=== PATIENT | female | born 1980 | race Two or more races ===

== ENCOUNTER 2021-12-27 18:53 | Inpatient (IN) | payer OTHER, SELFPAY ==
[2021-12-27 19:12] VITALS: BP 112/73; PULSE 100; RESP 16; TEMP 36.1; O2SAT 97; BMI 37.1
--- NOTE | 2021-12-27 19:26 | ED.OVERDOSE ---
HPI - Overdose General Chief Complaint: Overdose Stated Complaint: crisis Time Seen by Provider: 12/27/21 19:25 Source: family Mode of arrival: ambulatory History of Present Illness HPI Narrative: Patient very poor historian brought by her partner for for increased lethargic following sleep apparently patient took 3 days of her psych medication exactly not sure what medications 3 days ago since then patient has been sleeping unable to function patient does have history of depression and SI in the past and has done similar overdosing in the past just to sleep per patient partner patient denies any suicidal ideation at this time. On arrival patient has been sleeping since then able to wake up on painful stimuli. Her medication includes Cogentin, clonidine, Prozac, Haldol, Lamictal, Ativan, metformin, Zyprexa and Januvia Related Data Home Medications Medication Instructions Recorded Confirmed Trulicity 12/27/21 12/27/21 benztropine 1 mg tablet 1 mg PO BID 12/27/21 12/27/21 clonidine HCl 0.1 mg tablet 0.1 mg PO BID 12/27/21 12/27/21 fluoxetine 20 mg capsule (Prozac) 20 mg PO BID 12/27/21 12/27/21 haloperidol 10 mg tablet 10 mg PO DAILY 12/27/21 12/27/21 lamotrigine 100 mg tablet 100 mg PO DAILY 12/27/21 12/27/21 lorazepam 1 mg tablet (Ativan) 1 mg PO BID PRN 12/27/21 12/27/21 metformin 1,000 mg tablet,extended 1,000 mg PO DAILY 12/27/21 12/27/21 release 24hr olanzapine 10 mg tablet (Zyprexa) 10 mg PO DAILY 12/27/21 12/27/21 omeprazole 20 mg capsule,delayed 20 mg PO DAILY 12/27/21 12/27/21 release pregabalin 225 mg capsule 225 mg PO DAILY 12/27/21 12/27/21 sitagliptin 100 mg tablet (Januvia) 100 mg PO DAILY 12/27/21 12/27/21 zolpidem 10 mg tablet 10 mg PO BEDTIME 12/27/21 12/27/21 Allergies Allergy/AdvReac Type Severity Reaction Status Date / Time quetiapine [From Seroquel] Allergy Severe Difficulty Verified 12/27/21 19:41 Breathing Review of Systems Review of Systems: Yes Unobtainable due to mental status [facility] Social History Social History Alcohol intake: current Alcohol intake frequency: 3 or more drinks per day Alcohol type: wine Patient Tobacco Use Status: Current everyday Tobacco user Smoked in Last 30 Days: Yes Physical Exam Vital Signs: Vital Signs: Last Vital Signs Temp 97.9 F 12/27/21 22:13 Pulse 76 12/27/21 22:13 Resp 16 12/27/21 22:13 BP 120/81 12/27/21 22:13 Pulse Ox 100 12/27/21 22:13 BMI result Body Mass Index 37.1 Appearance: Lethargic in nose significant distress breathing of her own saturating 100% on room air Eyes: Pupil dilated 5 mm b/l reacting to the light HEENT: Atraumatic normocephalic Pharynx normal. Oral Mucosa moist Neck: Normal inspection. Neck supple. CVS: Normal heart rate and rhythm. Pulses normal. Respiratory: No respiratory distress. Equal air entry bilateral, no wheezing/rales/rhonchi Abdomen: Soft and nontender. Bowel sounds are present, no mass palpable, no CVA tenderness Skin: Skin warm and dry. Normal skin color. Normal skin turgor. Extremities: No lower extremity edema. No calf tenderness Neuro: Lethargic arousable on painful stimuli moving all 4 extremities No motor deficit. cranial nerves II-XII intact MDM - Overdose MDM Narrative Medical decision making narrative: Patient with overdose exactly not sure what medication she took but she takes Zyprexa Haldol Ativan Lamictal Prozac clonidine Cogentin which she took according to partner 3 days ago but still sleepy. Patient partner does not stay all the time with her as she goes to work patient very poor historian not tearing exactly whether she took any extra medication and not. Case discussed with poison control advised watch, observe her in the ER did she fully awake Differential Diagnosis Differential diagnosis: Likely drug overdose Lab Data Attestation: I reviewed the patient's lab results. Result diagrams: 12/27/21 20:14 12/27/21 20:14 Labs: Lab Results 12/27/21 12/27/21 12/27/21 Range/Units 20:14 20:14 20:14 WBC 9.4 (4.8-10.8) X10*3/uL RBC 4.19 L (4.20-5.50) X10*6/uL Hgb 10.6 L (12.0-16.0) g/dl Hct 33.0 L (37.0-47.0) % MCV 78.8 L (80.0-98.0) fL MCH 25.3 L (27.0-33.0) pg MCHC 32.1 (31.0-35.0) g/dl RDW 16.3 H (11.0-16.0) % Plt Count 317 (160-400) X10*3/uL MPV 11.5 (9.4-12.3) fL Immature Gran % (Auto) 0.2 (0.0-0.4) % Neut % (Auto) 60.1 (45-73) % Lymph % (Auto) 31.4 (20-40) % [place] % (Auto) 6.0 (2-11) % Eos % (Auto) 1.4 (0-4) % Baso % (Auto) 0.9 (0-2) % Lymph # (Auto) 3.0 (1.2-4.9) X10*3/uL [place] # (Auto) 0.6 (0.1-1.2) X10*3/uL Eos # (Auto) 0.1 (0.0-0.4) X10*3/uL Baso # (Auto) 0.1 (0.0-0.2) X10*3/uL Abs Immat Gran (auto) 0.02 (0.00-0.03) X10*3/uL Absolute Neuts (auto) 5.7 (2.0-8.3) x10*3/uL Absolute Nucleated RBC 0.000 (0.0-0.012) X10*3/uL Nucleated RBC % (auto) 0.0 (0.0-0.2) /100WBC Sodium 136 (135-145) mmol/L Potassium 3.7 (3.3-5.1) mmol/L Chloride 105 (96-108) mmol/L Carbon Dioxide 22 (22-29) mmol/L Anion Gap 13 (12-20) BUN 8 L (9-16) mg/dL Creatinine 0.88 (0.5-1.4) mg/dL Estim Creat Clear Calc 103.7 Estimated GFR > 60 Random Glucose 250 H (60-115) mg/dL Calcium 8.8 (8.4-10.2) mg/dL Total Bilirubin 0.3 (0.0-1.0) mg/dL AST 17 (5-31) U/L ALT 21 (0-31) U/L Alkaline Phosphatase 89 (39-117) U/L Total Protein 7.0 (6.5-8.0) g/dL Albumin 3.9 (3.5-5.0) g/dL Urine Color Urine Appearance Urine pH (5.0-8.0) Ur Specific [place] (1.005-1.025) Urine Protein (NEG-TRACE) MG/DL Urine Glucose (UA) (NEG) MG/DL Urine Ketones (NEG) MG/DL Urine Blood (NEG) Urine Nitrite (NEG) Ur Leukocyte Esterase (NEG) Urine RBC (0) /HPF Urine WBC (0-4) /HPF Ur Squamous Epith Cells /LPF Urine Bacteria /LPF Urine Mucus /LPF Salicylates < 5.0 L (15-30) mg/dL Urine Opiates Screen (Not Detect) Urine Fentanyl Screen (Not Detect) Acetaminophen < 1 (<30) mcg/mL Ur Barbiturates Screen (Not Detect) Ur Phencyclidine Scrn (Not Detect) Ur Amphetamines Screen (Not Detect) U Benzodiazepines Scrn (Not Detect) Urine Cocaine Screen (Not Detect) U Marijuana (THC) Screen (Not Detect) Ethyl Alcohol mg/dL COVID-19 ([facility]) Negative (Negative) COVID-19 Clin Com See Note 12/27/21 12/27/21 12/27/21 Range/Units 20:14 22:55 22:55 WBC (4.8-10.8) X10*3/uL RBC (4.20-5.50) X10*6/uL Hgb (12.0-16.0) g/dl Hct (37.0-47.0) % MCV (80.0-98.0) fL MCH (27.0-33.0) pg MCHC (31.0-35.0) g/dl RDW (11.0-16.0) % Plt Count (160-400) X10*3/uL MPV (9.4-12.3) fL Immature Gran % (Auto) (0.0-0.4) % Neut % (Auto) (45-73) % Lymph % (Auto) (20-40) % [place] % (Auto) (2-11) % Eos % (Auto) (0-4) % Baso % (Auto) (0-2) % Lymph # (Auto) (1.2-4.9) X10*3/uL [place] # (Auto) (0.1-1.2) X10*3/uL Eos # (Auto) (0.0-0.4) X10*3/uL Baso # (Auto) (0.0-0.2) X10*3/uL Abs Immat Gran (auto) (0.00-0.03) X10*3/uL Absolute Neuts (auto) (2.0-8.3) x10*3/uL Absolute Nucleated RBC (0.0-0.012) X10*3/uL Nucleated RBC % (auto) (0.0-0.2) /100WBC Sodium (135-145) mmol/L Potassium (3.3-5.1) mmol/L Chloride (96-108) mmol/L Carbon Dioxide (22-29) mmol/L Anion Gap (12-20) BUN (9-16) mg/dL Creatinine (0.5-1.4) mg/dL Estim Creat Clear Calc Estimated GFR Random Glucose (60-115) mg/dL Calcium (8.4-10.2) mg/dL Total Bilirubin (0.0-1.0) mg/dL AST (5-31) U/L ALT (0-31) U/L Alkaline Phosphatase (39-117) U/L Total Protein (6.5-8.0) g/dL Albumin (3.5-5.0) g/dL Urine Color YELLOW Urine Appearance HAZY Urine pH 6.0 (5.0-8.0) Ur Specific [place] 1.015 (1.005-1.025) Urine Protein NEG (NEG-TRACE) MG/DL Urine Glucose (UA) NEG (NEG) MG/DL Urine Ketones NEG (NEG) MG/DL Urine Blood NEG (NEG) Urine Nitrite NEG (NEG) Ur Leukocyte Esterase TRACE H (NEG) Urine RBC 1-4 (0) /HPF Urine WBC 1-4 (0-4) /HPF Ur Squamous Epith Cells 1+ /LPF Urine Bacteria 4+ /LPF Urine Mucus 2+ /LPF Salicylates (15-30) mg/dL Urine Opiates Screen Not Detected (Not Detect) Urine Fentanyl Screen POSITIVE H (Not Detect) Acetaminophen (<30) mcg/mL Ur Barbiturates Screen Not Detected (Not Detect) Ur Phencyclidine Scrn Not Detected (Not Detect) Ur Amphetamines Screen Not Detected (Not Detect) U Benzodiazepines Scrn Not Detected (Not Detect) Urine Cocaine Screen Not Detected (Not Detect) U Marijuana (THC) Screen POSITIVE H (Not Detect) Ethyl Alcohol < 10 mg/dL COVID-19 ([facility]) (Negative) COVID-19 Clin Com ECG Data Attestation: I personally reviewed and interpreted this ECG as follows: Interpretation: Normal sinus rhythm heart rate 89 beats per minute normal interval normal axis no acute ST-T changes normal intervals Discharge Plan Discharge Clinical Impression: Drug overdose Patient Disposition: Still a Patient Prescriptions: No Action clonidine HCl 0.1 mg Tablet 0.1 mg PO BID 0RF olanzapine [Zyprexa] 10 mg Tablet 10 mg PO DAILY 0RF haloperidol [Haldol] 10 mg Tablet 10 mg PO DAILY 0RF benztropine [Cogentin] 1 mg Tablet 1 mg PO BID 0RF omeprazole 20 mg Capsule,Delayed Release(Dr/Ec) 20 mg PO DAILY 0RF lorazepam [Ativan] 1 mg Tablet 1 mg PO BID PRN (Reason: Anxiety) 0RF zolpidem 10 mg Tablet 10 mg PO BEDTIME 0RF fluoxetine [Prozac] 20 mg Capsule 20 mg PO BID 0RF Rx Instructions: administer in the morning and at noon/midday lamotrigine 100 mg Tablet 100 mg PO DAILY 0RF metformin 1,000 mg Tablet Extended Release 24hr 1,000 mg PO DAILY 0RF pregabalin 225 mg Capsule 225 mg PO DAILY 0RF Januvia 100 mg Tablet 100 mg PO DAILY 0RF Trulicity 0RF
[2021-12-27 19:34] VITALS: BP 119/76; PULSE 93; RESP 14; TEMP 37.2; O2SAT 97
--- NOTE | 2021-12-27 19:34 | ECG_ITS ---
Test Reason : OVERDOSED Blood Pressure : / mmHG Vent. Rate : 089 BPM Atrial Rate : 089 BPM P-R Int : 156 ms QRS Dur : 082 ms QT Int : 380 ms P-R-T Axes : 029 026 025 degrees QTc Int : 462 ms Normal sinus rhythm Normal ECG No previous ECGs available Referred By: Ayo Carmona Electronically Signed By:Cholo Hameed
[2021-12-27 19:59] VITALS: BP 110/81; PULSE 89; RESP 16; TEMP 36.4; O2SAT 97
[2021-12-27 20:20] LABS: MANUAL DIFF FLAG NO
[2021-12-27 20:27] LABS: Basophils Absolute Auto 0.1 X10*3/uL (0.0-0.2); Basophils Percent Auto 0.9 % (0-2); Eosinophils Absolute Auto 0.1 X10*3/uL (0.0-0.4); Eosinophils Percent Auto 1.4 % (0-4); Hemoglobin 10.6 g/dl (12.0-16.0); Imm Gran Abs Auto 0.02 X10*3/uL (0.00-0.03); Imm Gran Pct Auto 0.2 % (0.0-0.4); Lymphocytes Percent Auto 31.4 % (20-40); Mean Corpuscular HGB Conc 32.1 g/dl (31.0-35.0); Mean Corpuscular Hemoglobin 25.3 pg (27.0-33.0); Mean Corpuscular Volume 78.8 fL (80.0-98.0); Mean Platelet Volume 11.5 fL (9.4-12.3); Monocytes Absolute Auto 0.6 X10*3/uL (0.1-1.2); Neutrophils Absolute Auto 5.7 x10*3/uL (2.0-8.3); Neutrophils Percent Auto 60.1 % (45-73); Platelet Count 317 X10*3/uL (160-400); Red Blood Count 4.19 X10*6/uL (4.20-5.50); Red Cell Distribution Width 16.3 % (11.0-16.0); White Blood Count 9.4 X10*3/uL (4.8-10.8)
[2021-12-27 20:37] LABS: COVID-19 Test Negative (Negative); Ethanol < 10 mg/dL
[2021-12-27 20:39] LABS: Acetaminophen LAB < 1 mcg/mL (<30); Alanine Aminotransferase 21 U/L (0-31); Albumin Level 3.9 g/dL (3.5-5.0); Alkaline Phosphatase 89 U/L (39-117); Anion Gap 13 (12-20); Aspartate Amino Transferase 17 U/L (5-31); Bilirubin Total 0.3 mg/dL (0.0-1.0); Blood Urea Nitrogen 8 mg/dL (9-16); Calcium 8.8 mg/dL (8.4-10.2); Carbon Dioxide 22 mmol/L (22-29); Chloride 105 mmol/L (96-108); Creatinine Clr Calc Pharmacy 103.7; Estimated Glomerular Filt Rate > 60; Glucose Random 250 mg/dL (60-115); Potassium 3.7 mmol/L (3.3-5.1); Salicylate < 5.0 mg/dL (15-30); Sodium 136 mmol/L (135-145)
--- NOTE | 2021-12-27 20:50 | PC.NURSE ---
Per request ER MD Villeda I phoned [facility] pharmacy to obtain a med list for this pt as the pt's nor the pt were able to articulate an accurate med list. The meds that were dictated to me by Su have been entered into the pts med rec. Christiana MAGUIRE aware. no further action requested regarding med list.
[2021-12-27 22:13] VITALS: BP 120/81; PULSE 76; RESP 16; TEMP 36.6; O2SAT 100
[2021-12-27 23:01] LABS: Appearance Urine HAZY; Color Urine YELLOW; Glucose Urine UA NEG (NEG); Leukocyte Esterase Urine TRACE (NEG); Nitrite Urine NEG (NEG); Specific Gravity - Urine 1.015 (1.005-1.025); Urine Blood NEG (NEG); Urine Ketones NEG (NEG); Urine Protein NEG (NEG-TRACE)
[2021-12-27 23:08] LABS: Bacteria Urine 4+ /LPF; Mucus Urine 2+ /LPF; Squamous Epithelial Cell Urine 1+ /LPF
[2021-12-27 23:18] LABS: Amphetamine Screen Urine Not Detected (Not Detect); Barbiturates, Urine Not Detected (Not Detect); Benzodiazepines Screen Urine Not Detected (Not Detect); Cannabinoid Screen Urine POSITIVE (Not Detect); Cocaine Screen Urine Not Detected (Not Detect); Fentanyl, urine POSITIVE (Not Detect); Opiate Screen Urine Not Detected (Not Detect); Phencyclidine Screen Urine Not Detected (Not Detect)
--- NOTE | 2021-12-27 23:18 | PC.NURSE ---
At approximately 2200 I spoke with poison control regarding this patient at the request of MD Villeda. Their instructions were to ? continue monitoring the patient until they are awake and alert and oriented x 3. Christiana MAGUIRE aware.
[2021-12-28] VITALS (8 sets, daily range): BP systolic 121–135; BP diastolic 74–90; PULSE 80–108; RESP 15–18; TEMP 36.4–36.6; O2SAT 98–100
--- NOTE | 2021-12-28 07:27 | MHC.CARE ---
Pt was assessed in the community and a inpatient bedsearch
--- NOTE | 2021-12-28 10:03 | PHA.MEDREC ---
Pharmacy Consult ? Medication Reconciliation Pharmacy has completed the medication reconciliation.
[2021-12-28] MEDS: FLUoxetine HCl 20 MG CAPSULE PO ×2 (10:10→20:14)
[2021-12-28] MEDS: Benztropine Mesylate 1 MG TABLET PO ×2 (10:10→20:13)
[2021-12-28] MEDS: cloNIDine HCL 0.1 MG TABLET PO ×2 (10:10→20:14)
[2021-12-28] MEDS: HaloperidoL 5 MG TABLET 10 MG PO (10:11)
[2021-12-28] MEDS: lamoTRIgine 100 MG TABLET PO (11:42)
[2021-12-28] MEDS: Pregabalin 75 MG CAPSULE 225 MG PO (11:43)
[2021-12-28] MEDS: OLANZapine 10 MG TABLET PO (11:43)
[2021-12-28] MEDS: metFORMIN HCl ER 500 MG TAB.ER.24H 1000 MG PO (11:43)
[2021-12-28] MEDS: SITagliptin Phosphate 100 MG TABLET PO (11:43)
[2021-12-28] MEDS: Omeprazole 20 MG CAPSULE.DR PO (11:44)
--- NOTE | 2021-12-28 13:35 | PM.PSYCN ---
History of Present Illness Date of Service: 12/28/21 Chief Complaint: crisis Reason for Consult: assess, med management Discussed with referring provider: No Sources of Information: patient interviewed, chart reviewed and crisis/core team assessment reviewed HPI Narrative: Patient is a 41-year-old female with history of mood lability, chronic SI and past suicide attempts who presented to the ED with her partner after having made a suicidal comment to her partner, following an intentional overdose of her medications about 3 days prior in a suicide attempt. Patient is casual about episode and says that for years, she has daily suicidal thoughts. She acknowledges that a few days ago she took an overdose in a suicide attempt but she cannot articulate what triggered her. Patient explained that she got into an argument the other night with her partner about her safety and that when patient went upstairs to the bedroom, her partner got emotional is said something to the effect of you are going to attempt suicide to which patient replied maged. Although patient did attempt 3 days ago, she said that she was not suicidal at this moment and she only made the reply out of spite in the context of their argument; she reiterates she did not mean it and was not suicidal. Patient says she takes her medications regularly otherwise however she complains of auditory hallucinations that are not treated by her medications. She says she is working on this with her therapist. Fiberline Supervisor discussed need for inpatient admission, however patient said she has think she needs it and wants to continue working this out as an outpatient. Patient being assessed by [facility] crisis Past Psychiatric History: deferred to [facility] Crisis Medical Evaluation Reviewed: Yes ON LICENSE OF [facility] Medical History (Updated 12/29/21 @ 09:24 by Lavell Lisa MD) Adjustment disorder with mixed disturbance of emotions and conduct Family History: deferred to [facility] Crisis Social History: has partner with whom she's been with for past 8 years, for 2 Substance History: denies; drinks 2-3 alcoholic drinks a day Trauma History: deferred to [facility] Crisis Diagnostics Vital Signs (24Hr): Vital Signs - 24 hr 12/27/21 19:12 12/27/21 19:34 12/27/21 19:59 Temperature 97 F 98.9 F 97.6 F Pulse Rate 100 93 89 Respiratory Rate 16 14 16 Blood Pressure 112/73 119/76 110/81 Pulse Oximetry 97 97 97 12/27/21 22:13 12/28/21 01:59 12/28/21 02:01 Temperature 97.9 F Pulse Rate 76 87 80 Respiratory Rate 16 18 18 Blood Pressure 120/81 135/90 H Pulse Oximetry 100 98 98 12/28/21 05:56 12/28/21 09:03 12/28/21 10:37 Temperature 97.8 F 97.6 F Pulse Rate 104 H 101 H 106 H Respiratory Rate 16 16 16 Blood Pressure 121/76 135/88 130/85 Pulse Oximetry 98 98 100 12/28/21 12:04 Temperature Pulse Rate 96 Respiratory Rate 16 Blood Pressure 131/85 Pulse Oximetry 98 BMI result Body Mass Index 37.1 Labs Results: 12/27/21 20:14 12/27/21 20:14 Labs: Laboratory Results - last 48 hr 12/27/21 12/27/21 12/27/21 20:14 20:14 20:14 WBC 9.4 RBC 4.19 L Hgb 10.6 L Hct 33.0 L MCV 78.8 L MCH 25.3 L MCHC 32.1 RDW 16.3 H Plt Count 317 MPV 11.5 Immature Gran % (Auto) 0.2 Neut % (Auto) 60.1 Lymph % (Auto) 31.4 [place] % (Auto) 6.0 Eos % (Auto) 1.4 Baso % (Auto) 0.9 Lymph # (Auto) 3.0 [place] # (Auto) 0.6 Eos # (Auto) 0.1 Baso # (Auto) 0.1 Abs Immat Gran (auto) 0.02 Absolute Neuts (auto) 5.7 Absolute Nucleated RBC 0.000 Nucleated RBC % (auto) 0.0 Sodium 136 Potassium 3.7 Chloride 105 Carbon Dioxide 22 Anion Gap 13 BUN 8 L Creatinine 0.88 Estim Creat Clear Calc 103.7 Estimated GFR > 60 Random Glucose 250 H Calcium 8.8 Total Bilirubin 0.3 AST 17 ALT 21 Alkaline Phosphatase 89 Total Protein 7.0 Albumin 3.9 Urine Color Urine Appearance Urine pH Ur Specific [place] Urine Protein Urine Glucose (UA) Urine Ketones Urine Blood Urine Nitrite Ur Leukocyte Esterase Urine RBC Urine WBC Ur Squamous Epith Cells Urine Bacteria Urine Mucus Salicylates < 5.0 L Urine Opiates Screen Urine Fentanyl Screen Acetaminophen < 1 Ur Barbiturates Screen Ur Phencyclidine Scrn Ur Amphetamines Screen U Benzodiazepines Scrn Urine Cocaine Screen U Marijuana (THC) Screen Ethyl Alcohol COVID-19 ([facility]) Negative COVID-19 Clin Com See Note 12/27/21 12/27/21 12/27/21 20:14 22:55 22:55 WBC RBC Hgb Hct MCV MCH MCHC RDW Plt Count MPV Immature Gran % (Auto) Neut % (Auto) Lymph % (Auto) [place] % (Auto) Eos % (Auto) Baso % (Auto) Lymph # (Auto) [place] # (Auto) Eos # (Auto) Baso # (Auto) Abs Immat Gran (auto) Absolute Neuts (auto) Absolute Nucleated RBC Nucleated RBC % (auto) Sodium Potassium Chloride Carbon Dioxide Anion Gap BUN Creatinine Estim Creat Clear Calc Estimated GFR Random Glucose Calcium Total Bilirubin AST ALT Alkaline Phosphatase Total Protein Albumin Urine Color YELLOW Urine Appearance HAZY Urine pH 6.0 Ur Specific [place] 1.015 Urine Protein NEG Urine Glucose (UA) NEG Urine Ketones NEG Urine Blood NEG Urine Nitrite NEG Ur Leukocyte Esterase TRACE H Urine RBC 1-4 Urine WBC 1-4 Ur Squamous Epith Cells 1+ Urine Bacteria 4+ Urine Mucus 2+ Salicylates Urine Opiates Screen Not Detected Urine Fentanyl Screen POSITIVE H Acetaminophen Ur Barbiturates Screen Not Detected Ur Phencyclidine Scrn Not Detected Ur Amphetamines Screen Not Detected U Benzodiazepines Scrn Not Detected Urine Cocaine Screen Not Detected U Marijuana (THC) Screen POSITIVE H Ethyl Alcohol < 10 COVID-19 ([facility]) COVID-19 Clin Com Mental Status Exam Mental Status Exam Narrative: Pt is alert and oriented; behavior is cooperative, friendly and calm; patient is not in distress; dressed in casual attire, without dentures in, with unkempt hair but adequate hygiene; mood is described as ok and affect congruent, calm; eye contact appropriate; Speech is normal rate, volume and prosody and not pressured; no psychomotor agitation/retardation present; thought process is organized and goal directed; Thought content is on tx; otherwise pertinent to relevant topics and without any delusional content, paranoid ideations or grandiosity; denies any SI/HI. Endorses chronic AH; Patients insight and judgment appears impaired as she's minimizing her attempt and need for help stabilizing. Medications Medications Current Medications Benztropine Mesylate (Benztropine Mesylate 1 Mg Tablet) 1 mg PO BID [facility] Last Admin: 12/28/21 10:10 Dose: 1 mg Documented by: Clonidine HCl (Clonidine Hcl 0.1 Mg Tablet) 0.1 mg PO BID [facility]; Protocol Last Admin: 12/28/21 10:10 Dose: 0.1 mg Documented by: Fluoxetine HCl (Fluoxetine Hcl 20 Mg Capsule) 20 mg PO BID [facility] Last Admin: 12/28/21 10:10 Dose: 20 mg Documented by: Haloperidol (Haloperidol 5 Mg Tablet) 10 mg PO DAILY [facility] Last Admin: 12/28/21 10:11 Dose: 10 mg Documented by: Lamotrigine (Lamotrigine 100 Mg Tablet) 100 mg PO DAILY [facility] Last Admin: 12/28/21 11:42 Dose: 100 mg Documented by: Lorazepam (Lorazepam 1 Mg Tablet) 1 mg PO BID PRN PRN Reason: Anxiety Metformin HCl (Metformin Hcl Er 500 Mg Tab.Er.24h) 1,000 mg PO DAILY [facility] Last Admin: 12/28/21 11:43 Dose: 1,000 mg Documented by: Olanzapine (Olanzapine 10 Mg Tablet) 10 mg PO DAILY [facility] Last Admin: 12/28/21 11:43 Dose: 10 mg Documented by: Omeprazole (Omeprazole 20 Mg Capsule.Dr) 20 mg PO DAILY [facility] Last Admin: 12/28/21 11:44 Dose: 20 mg Documented by: Pregabalin (Pregabalin 75 Mg Capsule) 225 mg PO DAILY [facility] Last Admin: 12/28/21 11:43 Dose: 225 mg Documented by: Sitagliptin Phosphate (Sitagliptin Phosphate 100 Mg Tablet) 100 mg PO DAILY [facility] Last Admin: 12/28/21 11:43 Dose: 100 mg Documented by: Zolpidem Tartrate (Zolpidem Tartrate 5 Mg Tablet) 10 mg PO BEDTIME [facility] Allergies Allergies Allergy/AdvReac Type Severity Reaction Status Date / Time quetiapine [From Seroquel] Allergy Severe Difficulty Verified 12/27/21 19:41 Breathing Assessment & Plan Assessment & Plan (1) Adjustment disorder with mixed disturbance of emotions and conduct: Status: Acute Code(s): F43.25 - Adjustment disorder with mixed disturbance of emotions and conduct Plan Patient is a 41-year-old female with history of mood lability, chronic SI and past suicide attempts who presented to the ED with her partner after having made a suicidal comment to her partner, following an intentional overdose of her medications about 3 days prior in a suicide attempt. Patient is minimizing recent attempt however as reported, she has a long history of SI and attempts which are chronic for her. Fiberline Supervisor recommends inpatient admission for help with medications to improve stability; however it may also be possible that by now, patient is no longer an imminent risk for harm to self or others. Fiberline Supervisor will defer this decision to [facility] crisis assessment who is seeking collateral and exploring patients history in more detail. PLAN: Continue with [facility] assessment Pt says she does not want to continue taking Haldol and will tell her current provider. I spent minutes with the patient and/or on the patient floor today, greater than?50% of which was spent counseling/coordinating care. Patient educated on: therapeutic strategies Informed Consent: further education needed
--- NOTE | 2021-12-28 14:37 | PC.NURSE ---
Pt seen this date for individual OT tx. Pt presents bright and alert however demonstrates difficulty maintaining task focused. Attempt made to educate pt with regard to mental health benefits of practicing gratitude . Pt is unable to fully engage in exercise secondary to limited attention span and high degree of distractibility at this time. Pt provided with educational material as well as simple journaling prompt Today I am Grateful That , I see...I hear...I smell...I taste...I feel. Pt provided with explanation for completing journaling prompt and pt reports I know exactly what I'm going to write . Consult with pts nurse regarding presentation of apparent confusion noted, pts nurse to access.
[2021-12-28] MEDS: LORazepam 1 MG TABLET PO (17:17)
[2021-12-28] MEDS: Zolpidem Tartrate 5 MG TABLET 10 MG PO (20:13)
[2021-12-28 20:21] LABS: Glucose, Whole Blood 316 mg/dL (60-115)
[2021-12-28 21:28] LABS: Glucose, Whole Blood 354 mg/dL (60-115)
[2021-12-28] MEDS: Insulin Glargine,Hum.rec.anlog 100 UNIT/ML 10 ML VIAL 45 UNIT SUBCUT (22:16)
[2021-12-28] MEDS: Insulin Lispro 100 UNIT/ML 3 ML VIAL 8 UNIT SUBCUT (22:16)
[2021-12-28 23:04] LABS: Glucose, Whole Blood 333 mg/dL (60-115)
[2021-12-29 04:55] VITALS: BP 138/87; PULSE 99; RESP 17; O2SAT 99
[2021-12-29 05:02] LABS: Glucose, Whole Blood 227 mg/dL (60-115)
--- NOTE | 2021-12-29 06:28 | PC.NURSE ---
Patient slept through the night, no distress observed/reported, POC was 354 at 2124, administered lispro 8 units at 2216, verified insulin order/administered scheduled Lantus 45 unit, POC 227 at 0458, medication compliant, behavior non concerning, disposition per [facility] is section 12 inpatient bed search, will continue to monitor.
[2021-12-29 07:06] LABS: Glucose, Whole Blood 371 mg/dL (60-115)
[2021-12-29] MEDS: Insulin Lispro 100 UNIT/ML 3 ML VIAL SUBCUT ×2 (07:19→20:49)
[2021-12-29] MEDS: lamoTRIgine 100 MG TABLET PO (07:27)
[2021-12-29] MEDS: cloNIDine HCL 0.1 MG TABLET PO ×2 (07:27→20:51)
[2021-12-29] MEDS: Pregabalin 75 MG CAPSULE 225 MG PO (07:27)
[2021-12-29] MEDS: metFORMIN HCl ER 500 MG TAB.ER.24H 1000 MG PO (07:27)
[2021-12-29] MEDS: OLANZapine 10 MG TABLET PO ×2 (07:27→20:51)
[2021-12-29] MEDS: HaloperidoL 5 MG TABLET 10 MG PO (07:28)
[2021-12-29] MEDS: Benztropine Mesylate 1 MG TABLET PO (07:28)
[2021-12-29] MEDS: Omeprazole 20 MG CAPSULE.DR PO (07:28)
[2021-12-29] MEDS: FLUoxetine HCl 20 MG CAPSULE PO ×2 (07:29→20:51)
--- NOTE | 2021-12-29 07:40 | PC.NURSE ---
PT ALERT CALM COOPERATIVE, TOLERATING PO, AMB WITH STEADY GAIT. NEEDS BEING MET WAITING ON INPATIENT PLACEMENT
[2021-12-29 08:09] VITALS: BP 145/93; PULSE 99; RESP 18; TEMP 36.4; O2SAT 99
[2021-12-29] MEDS: SITagliptin Phosphate 100 MG TABLET PO (09:05)
[2021-12-29 12:21] LABS: Glucose, Whole Blood 204 mg/dL (60-115)
[2021-12-29 16:48] LABS: COVID-19 Test Negative (Negative)
--- NOTE | 2021-12-29 18:22 | HO.PSYADMNOT ---
HPI Date of Service: 12/29/21 Chief Complaint: depression,SI Sources of Information: patient interviewed, chart reviewed and crisis/core team assessment reviewed HPI Subjective Notes: Sinclair Warning and Conditional Voluntary Healthcare Proxy: No Guardianship: No Medical Problems Affecting Mental Status: No Narrative: Cally is a 41 y.o. pt who carries a dx of schizoaffective disorder, depressive type. She [place] [facility] [place] brought in by her partner due to increased lethargy following an intentional overdose of her medications 3 days ago, says this was a suicide attempt. Pt has hx of overtaking her meds for sleep. Per psych consult, pt has a psych hx positive for mood lability, chronic SI and past suicide attempts. Pt unable to identify precipitating factors. Pt reports good med-adherence. Has hx of AH. I evaluated the pt this evening and upon interview she reports she is no longer on Haldol x one month, as it ?wasn?t working.? When asked about precipitating factors, pt says ?honestly I don?t know.? Says she ?just feels like im tired of all the things that happened.? Per pt, she has been having A/V hallucinations. Had a recent VH ?of this old short linda with a hat at the foot of my bed,? says ?one day he actually grabbed my feet,? denies that this was a dream. Pt has AH at baseline, ?I have voices in my head,? they call her inadequate, derogatory names, and tell her ?that I?m a bad mother, that I should be .? Pt reports onset of hallucinations x 1 yr ago. Her son left to go live with his father in [place] 1 yr ago, however pt asked for another year ?to recuperate.? Says her meds are working ?good,? minimizing suicide attempt, ?I just wanted to close my eyes and not think, I don?t know if that?s considered a suicide.? Pt requested to end the interview early, as she reported increased anxiety, ?Im starting to sweat, I want to cry.? She does not want med changes. Medical Evaluation Reviewed: Yes [facility] Medical History (Updated 12/31/21 @ 01:37 by Radha Knight NP) Adjustment disorder with mixed disturbance of emotions and conduct Social History: has partner with whom she's been with for past 8 years, for 2 Diagnostics Vital Signs (24Hr): Vital Signs - 24 hr 12/28/21 20:14 12/29/21 04:55 12/29/21 08:09 Temperature 97.5 F Pulse Rate 106 H 99 99 Respiratory Rate 15 17 18 Blood Pressure 131/74 138/87 145/93 H Pulse Oximetry 99 99 BMI result Body Mass Index 37.1 Labs Results: 12/27/21 20:14 12/27/21 20:14 Labs: Laboratory Results - last 48 hr 12/27/21 12/27/21 12/27/21 20:14 20:14 20:14 WBC 9.4 RBC 4.19 L Hgb 10.6 L Hct 33.0 L MCV 78.8 L MCH 25.3 L MCHC 32.1 RDW 16.3 H Plt Count 317 MPV 11.5 Immature Gran % (Auto) 0.2 Neut % (Auto) 60.1 Lymph % (Auto) 31.4 [place] % (Auto) 6.0 Eos % (Auto) 1.4 Baso % (Auto) 0.9 Lymph # (Auto) 3.0 [place] # (Auto) 0.6 Eos # (Auto) 0.1 Baso # (Auto) 0.1 Abs Immat Gran (auto) 0.02 Absolute Neuts (auto) 5.7 Absolute Nucleated RBC 0.000 Nucleated RBC % (auto) 0.0 Sodium 136 Potassium 3.7 Chloride 105 Carbon Dioxide 22 Anion Gap 13 BUN 8 L Creatinine 0.88 Estim Creat Clear Calc 103.7 Estimated GFR > 60 POC Glucose Random Glucose 250 H Calcium 8.8 Total Bilirubin 0.3 AST 17 ALT 21 Alkaline Phosphatase 89 Total Protein 7.0 Albumin 3.9 Urine Color Urine Appearance Urine pH Ur Specific [place] Urine Protein Urine Glucose (UA) Urine Ketones Urine Blood Urine Nitrite Ur Leukocyte Esterase Urine RBC Urine WBC Ur Squamous Epith Cells Urine Bacteria Urine Mucus Salicylates < 5.0 L Urine Opiates Screen Urine Fentanyl Screen Acetaminophen < 1 Ur Barbiturates Screen Ur Phencyclidine Scrn Ur Amphetamines Screen U Benzodiazepines Scrn Urine Cocaine Screen U Marijuana (THC) Screen Ethyl Alcohol COVID-19 ([facility]) Negative COVID-19 Clin Com See Note 12/27/21 12/27/21 12/27/21 20:14 22:55 22:55 WBC RBC Hgb Hct MCV MCH MCHC RDW Plt Count MPV Immature Gran % (Auto) Neut % (Auto) Lymph % (Auto) [place] % (Auto) Eos % (Auto) Baso % (Auto) Lymph # (Auto) [place] # (Auto) Eos # (Auto) Baso # (Auto) Abs Immat Gran (auto) Absolute Neuts (auto) Absolute Nucleated RBC Nucleated RBC % (auto) Sodium Potassium Chloride Carbon Dioxide Anion Gap BUN Creatinine Estim Creat Clear Calc Estimated GFR POC Glucose Random Glucose Calcium Total Bilirubin AST ALT Alkaline Phosphatase Total Protein Albumin Urine Color YELLOW Urine Appearance HAZY Urine pH 6.0 Ur Specific [place] 1.015 Urine Protein NEG Urine Glucose (UA) NEG Urine Ketones NEG Urine Blood NEG Urine Nitrite NEG Ur Leukocyte Esterase TRACE H Urine RBC 1-4 Urine WBC 1-4 Ur Squamous Epith Cells 1+ Urine Bacteria 4+ Urine Mucus 2+ Salicylates Urine Opiates Screen Not Detected Urine Fentanyl Screen POSITIVE H Acetaminophen Ur Barbiturates Screen Not Detected Ur Phencyclidine Scrn Not Detected Ur Amphetamines Screen Not Detected U Benzodiazepines Scrn Not Detected Urine Cocaine Screen Not Detected U Marijuana (THC) Screen POSITIVE H Ethyl Alcohol < 10 COVID-19 ([facility]LEY) COVID-19 [employer] Com 12/28/21 12/28/21 12/28/21 20:18 21:24 23:00 WBC RBC Hgb Hct MCV MCH MCHC RDW Plt Count MPV Immature Gran % (Auto) Neut % (Auto) Lymph % (Auto) [place] % (Auto) Eos % (Auto) Baso % (Auto) Lymph # (Auto) [place] # (Auto) Eos # (Auto) Baso # (Auto) Abs Immat Gran (auto) Absolute Neuts (auto) Absolute Nucleated RBC Nucleated RBC % (auto) Sodium Potassium Chloride Carbon Dioxide Anion Gap BUN Creatinine Estim Creat Clear Calc Estimated GFR POC Glucose 316 H 354 H* 333 H Random Glucose Calcium Total Bilirubin AST ALT Alkaline Phosphatase Total Protein Albumin Urine Color Urine Appearance Urine pH Ur Specific [place] Urine Protein Urine Glucose (UA) Urine Ketones Urine Blood Urine Nitrite Ur Leukocyte Esterase Urine RBC Urine WBC Ur Squamous Epith Cells Urine Bacteria Urine Mucus Salicylates Urine Opiates Screen Urine Fentanyl Screen Acetaminophen Ur Barbiturates Screen Ur Phencyclidine Scrn Ur Amphetamines Screen U Benzodiazepines Scrn Urine Cocaine Screen U Marijuana (THC) Screen Ethyl Alcohol COVID-19 ([facility]LEY) COVID-19 [employer] 12/29/21 12/29/21 12/29/21 04:58 07:02 12:17 WBC RBC Hgb Hct MCV MCH MCHC RDW Plt Count MPV Immature Gran % (Auto) Neut % (Auto) Lymph % (Auto) [place] % (Auto) Eos % (Auto) Baso % (Auto) Lymph # (Auto) [place] # (Auto) Eos # (Auto) Baso # (Auto) Abs Immat Gran (auto) Absolute Neuts (auto) Absolute Nucleated RBC Nucleated RBC % (auto) Sodium Potassium Chloride Carbon Dioxide Anion Gap BUN Creatinine Estim Creat Clear Calc Estimated GFR POC Glucose 227 H 371 H* 204 H Random Glucose Calcium Total Bilirubin AST ALT Alkaline Phosphatase Total Protein Albumin Urine Color Urine Appearance Urine pH Ur Specific [place] Urine Protein Urine Glucose (UA) Urine Ketones Urine Blood Urine Nitrite Ur Leukocyte Esterase Urine RBC Urine WBC Ur Squamous Epith Cells Urine Bacteria Urine Mucus Salicylates Urine Opiates Screen Urine Fentanyl Screen Acetaminophen Ur Barbiturates Screen Ur Phencyclidine Scrn Ur Amphetamines Screen U Benzodiazepines Scrn Urine Cocaine Screen U Marijuana (THC) Screen Ethyl Alcohol COVID-19 ([facility]LEY) COVID-[employer] 12/29/21 16:14 WBC RBC Hgb Hct MCV MCH MCHC RDW Plt Count MPV Immature Gran % (Auto) Neut % (Auto) Lymph % (Auto) [place] % (Auto) Eos % (Auto) Baso % (Auto) Lymph # (Auto) [place] # (Auto) Eos # (Auto) Baso # (Auto) Abs Immat Gran (auto) Absolute Neuts (auto) Absolute Nucleated RBC Nucleated RBC % (auto) Sodium Potassium Chloride Carbon Dioxide Anion Gap BUN Creatinine Estim Creat Clear Calc Estimated GFR POC Glucose Random Glucose Calcium Total Bilirubin AST ALT Alkaline Phosphatase Total Protein Albumin Urine Color Urine Appearance Urine pH Ur Specific [place] Urine Protein Urine Glucose (UA) Urine Ketones Urine Blood Urine Nitrite Ur Leukocyte Esterase Urine RBC Urine WBC Ur Squamous Epith Cells Urine Bacteria Urine Mucus Salicylates Urine Opiates Screen Urine Fentanyl Screen Acetaminophen Ur Barbiturates Screen Ur Phencyclidine Scrn Ur Amphetamines Screen U Benzodiazepines Scrn Urine Cocaine Screen U Marijuana (THC) Screen Ethyl Alcohol COVID-19 ([facility]LEY) Negative COVID-[employer] See Note Meds/Allergies Meds Home Medications Medication Instructions Recorded Confirmed Type Trulicity 1.5 mg SUBCUT Q7D 12/27/21 12/28/21 History benztropine 1 mg tablet 1 mg PO BID 12/27/21 12/28/21 History clonidine HCl 0.1 mg tablet 0.1 mg PO BID 12/27/21 12/29/21 History fluoxetine 20 mg capsule (Prozac) 20 mg PO BID 12/27/21 12/27/21 History haloperidol 10 mg tablet 10 mg PO DAILY 12/27/21 12/27/21 History lamotrigine 100 mg tablet 100 mg PO DAILY 12/27/21 12/27/21 History lorazepam 1 mg tablet (Ativan) 1 mg PO BID PRN 12/27/21 12/27/21 History metformin 1,000 mg tablet,extended 1,000 mg PO DAILY 12/27/21 12/27/21 History release 24hr olanzapine 10 mg tablet (Zyprexa) 10 mg PO DAILY 12/27/21 12/27/21 History omeprazole 20 mg capsule,delayed 20 mg PO DAILY 12/27/21 12/27/21 History release pregabalin 225 mg capsule 225 mg PO DAILY 12/27/21 12/27/21 History sitagliptin 100 mg tablet (Januvia) 100 mg PO DAILY 12/27/21 12/27/21 History zolpidem 10 mg tablet 10 mg PO BEDTIME 12/27/21 12/27/21 History insulin glargine 100 unit/mL (3 45 unit SUBCUT BEDTIME 12/28/21 12/28/21 History mL) subcutaneous pen (Lantus Solostar U-100 Insulin) Allergies Allergies Allergy/AdvReac Type Severity Reaction Status Date / Time quetiapine [From Seroquel] Allergy Severe Difficulty Verified 12/27/21 19:41 Breathing Mental Status Exam Mental Status Exam Narrative: Pt is alert and oriented; behavior is cooperative, friendly and calm; patient is not in distress; dressed in casual attire, without dentures in, with unkempt hair but adequate hygiene; mood is described as anxious and affect tearful; eye contact appropriate; Speech is normal rate, volume and prosody and not pressured; no psychomotor agitation/retardation present; thought process is organized and goal directed; Thought content is on tx; otherwise pertinent to relevant topics and without any delusional content, paranoid ideations or grandiosity; denies any SI/HI. Endorses chronic AVH;? Patients insight and judgment appears impaired as she's minimizing her attempt and need for help stabilizing. Assessment & Plan Assessment & Plan (1) Schizoaffective disorder, depressive type: Status: Acute Code(s): F25.1 - Schizoaffective disorder, depressive type Plan Patient is a 41-year-old female with history of mood lability, chronic SI and past suicide attempts who presented to the ED with her partner after having made a suicidal comment to her partner, following an intentional overdose of her medications about 3 days prior in a suicide attempt. Plan: Will continue home meds and defer adjustment to primary treatment team. Patient educated on: medication risk/benefits and therapeutic strategies Reason for continued inpatient stay Substantial Risk for: med/psych decompensation
--- NOTE | 2021-12-29 18:23 | P.PNPSI_ITS ---
Subjective Subjective Reason For Visit: depression,SI Diagnostics Vital Signs (24Hr): Vital Signs - 24 hr 12/28/21 20:14 12/29/21 04:55 12/29/21 08:09 Temperature 97.5 F Pulse Rate 106 H 99 99 Respiratory Rate 15 17 18 Blood Pressure 131/74 138/87 145/93 H Pulse Oximetry 99 99 BMI result Body Mass Index 37.1 Labs Results: 12/27/21 20:14 12/27/21 20:14 Labs: Laboratory Results - last 48 hr 12/27/21 12/27/21 12/27/21 20:14 20:14 20:14 WBC 9.4 RBC 4.19 L Hgb 10.6 L Hct 33.0 L MCV 78.8 L MCH 25.3 L MCHC 32.1 RDW 16.3 H Plt Count 317 MPV 11.5 Immature Gran % (Auto) 0.2 Neut % (Auto) 60.1 Lymph % (Auto) 31.4 [place] % (Auto) 6.0 Eos % (Auto) 1.4 Baso % (Auto) 0.9 Lymph # (Auto) 3.0 [place] # (Auto) 0.6 Eos # (Auto) 0.1 Baso # (Auto) 0.1 Abs Immat Gran (auto) 0.02 Absolute Neuts (auto) 5.7 Absolute Nucleated RBC 0.000 Nucleated RBC % (auto) 0.0 Sodium 136 Potassium 3.7 Chloride 105 Carbon Dioxide 22 Anion Gap 13 BUN 8 L Creatinine 0.88 Estim Creat Clear Calc 103.7 Estimated GFR > 60 POC Glucose Random Glucose 250 H Calcium 8.8 Total Bilirubin 0.3 AST 17 ALT 21 Alkaline Phosphatase 89 Total Protein 7.0 Albumin 3.9 Urine Color Urine Appearance Urine pH Ur Specific [place] Urine Protein Urine Glucose (UA) Urine Ketones Urine Blood Urine Nitrite Ur Leukocyte Esterase Urine RBC Urine WBC Ur Squamous Epith Cells Urine Bacteria Urine Mucus Salicylates < 5.0 L Urine Opiates Screen Urine Fentanyl Screen Acetaminophen < 1 Ur Barbiturates Screen Ur Phencyclidine Scrn Ur Amphetamines Screen U Benzodiazepines Scrn Urine Cocaine Screen U Marijuana (THC) Screen Ethyl Alcohol COVID-19 ([facility]) Negative COVID-19 Clin Com See Note 12/27/21 12/27/21 12/27/21 20:14 22:55 22:55 WBC RBC Hgb Hct MCV MCH MCHC RDW Plt Count MPV Immature Gran % (Auto) Neut % (Auto) Lymph % (Auto) [place] % (Auto) Eos % (Auto) Baso % (Auto) Lymph # (Auto) [place] # (Auto) Eos # (Auto) Baso # (Auto) Abs Immat Gran (auto) Absolute Neuts (auto) Absolute Nucleated RBC Nucleated RBC % (auto) Sodium Potassium Chloride Carbon Dioxide Anion Gap BUN Creatinine Estim Creat Clear Calc Estimated GFR POC Glucose Random Glucose Calcium Total Bilirubin AST ALT Alkaline Phosphatase Total Protein Albumin Urine Color YELLOW Urine Appearance HAZY Urine pH 6.0 Ur Specific [place] 1.015 Urine Protein NEG Urine Glucose (UA) NEG Urine Ketones NEG Urine Blood NEG Urine Nitrite NEG Ur Leukocyte Esterase TRACE H Urine RBC 1-4 Urine WBC 1-4 Ur Squamous Epith Cells 1+ Urine Bacteria 4+ Urine Mucus 2+ Salicylates Urine Opiates Screen Not Detected Urine Fentanyl Screen POSITIVE H Acetaminophen Ur Barbiturates Screen Not Detected Ur Phencyclidine Scrn Not Detected Ur Amphetamines Screen Not Detected U Benzodiazepines Scrn Not Detected Urine Cocaine Screen Not Detected U Marijuana (THC) Screen POSITIVE H Ethyl Alcohol < 10 COVID-19 ([facility]) COVID-Anatexis 12/28/21 12/28/21 12/28/21 20:18 21:24 23:00 WBC RBC Hgb Hct MCV MCH MCHC RDW Plt Count MPV Immature Gran % (Auto) Neut % (Auto) Lymph % (Auto) [place] % (Auto) Eos % (Auto) Baso % (Auto) Lymph # (Auto) [place] # (Auto) Eos # (Auto) Baso # (Auto) Abs Immat Gran (auto) Absolute Neuts (auto) Absolute Nucleated RBC Nucleated RBC % (auto) Sodium Potassium Chloride Carbon Dioxide Anion Gap BUN Creatinine Estim Creat Clear Calc Estimated GFR POC Glucose 316 H 354 H* 333 H Random Glucose Calcium Total Bilirubin AST ALT Alkaline Phosphatase Total Protein Albumin Urine Color Urine Appearance Urine pH Ur Specific [place] Urine Protein Urine Glucose (UA) Urine Ketones Urine Blood Urine Nitrite Ur Leukocyte Esterase Urine RBC Urine WBC Ur Squamous Epith Cells Urine Bacteria Urine Mucus Salicylates Urine Opiates Screen Urine Fentanyl Screen Acetaminophen Ur Barbiturates Screen Ur Phencyclidine Scrn Ur Amphetamines Screen U Benzodiazepines Scrn Urine Cocaine Screen U Marijuana (THC) Screen Ethyl Alcohol COVID-19 ([facility]) COVID-Anatexis 05/12/29/21 12/29/21 04:58 07:02 12:17 WBC RBC Hgb Hct MCV MCH MCHC RDW Plt Count MPV Immature Gran % (Auto) Neut % (Auto) Lymph % (Auto) [place] % (Auto) Eos % (Auto) Baso % (Auto) Lymph # (Auto) [place] # (Auto) Eos # (Auto) Baso # (Auto) Abs Immat Gran (auto) Absolute Neuts (auto) Absolute Nucleated RBC Nucleated RBC % (auto) Sodium Potassium Chloride Carbon Dioxide Anion Gap BUN Creatinine Estim Creat Clear Calc Estimated GFR POC Glucose 227 H 371 H* 204 H Random Glucose Calcium Total Bilirubin AST ALT Alkaline Phosphatase Total Protein Albumin Urine Color Urine Appearance Urine pH Ur Specific [place] Urine Protein Urine Glucose (UA) Urine Ketones Urine Blood Urine Nitrite Ur Leukocyte Esterase Urine RBC Urine WBC Ur Squamous Epith Cells Urine Bacteria Urine Mucus Salicylates Urine Opiates Screen Urine Fentanyl Screen Acetaminophen Ur Barbiturates Screen Ur Phencyclidine Scrn Ur Amphetamines Screen U Benzodiazepines Scrn Urine Cocaine Screen U Marijuana (THC) Screen Ethyl Alcohol COVID-19 ([facility]) COVID-[employer] Com 12/29/21 16:14 WBC RBC Hgb Hct MCV MCH MCHC RDW Plt Count MPV Immature Gran % (Auto) Neut % (Auto) Lymph % (Auto) [place] % (Auto) Eos % (Auto) Baso % (Auto) Lymph # (Auto) [place] # (Auto) Eos # (Auto) Baso # (Auto) Abs Immat Gran (auto) Absolute Neuts (auto) Absolute Nucleated RBC Nucleated RBC % (auto) Sodium Potassium Chloride Carbon Dioxide Anion Gap BUN Creatinine Estim Creat Clear Calc Estimated GFR POC Glucose Random Glucose Calcium Total Bilirubin AST ALT Alkaline Phosphatase Total Protein Albumin Urine Color Urine Appearance Urine pH Ur Specific [place] Urine Protein Urine Glucose (UA) Urine Ketones Urine Blood Urine Nitrite Ur Leukocyte Esterase Urine RBC Urine WBC Ur Squamous Epith Cells Urine Bacteria Urine Mucus Salicylates Urine Opiates Screen Urine Fentanyl Screen Acetaminophen Ur Barbiturates Screen Ur Phencyclidine Scrn Ur Amphetamines Screen U Benzodiazepines Scrn Urine Cocaine Screen U Marijuana (THC) Screen Ethyl Alcohol COVID-19 ([facility]) Negative COVID-19 [employer] Com See Note Medications Medications Current Medications Acetaminophen (Acetaminophen 325 Mg Tablet) 650 mg PO Q6H PRN PRN Reason: Headache/Pain Mild Scale (1-3) Al Hydroxide/Mg Hydroxide (Magnesium Hydrox/Alum Hydrox 30 Ml Oral.Susp) 30 ml PO Q6H PRN PRN Reason: Heartburn/Nausea Benztropine Mesylate (Benztropine Mesylate 1 Mg Tablet) 1 mg PO BID [facility] Last Admin: 12/29/21 07:28 Dose: 1 mg Documented by: Clonidine HCl (Clonidine Hcl 0.1 Mg Tablet) 0.1 mg PO BID [facility]; Protocol Last Admin: 12/29/21 07:27 Dose: 0.1 mg Documented by: Dextrose (Dextrose 50 % 25 Gm/50 Ml Syringe) 25 gm IVPUSH Q15M PRN; Protocol PRN Reason: per Hypoglycemia Standing Ord. Fluoxetine HCl (Fluoxetine Hcl 20 Mg Capsule) 20 mg PO BID [facility] Last Admin: 12/29/21 07:29 Dose: 20 mg Documented by: Glucose (Glucose Gel 15 Gm Gel..Gram.) 15 gm PO Q15M PRN; Protocol PRN Reason: per Hypoglycemia Standing Ord. Haloperidol (Haloperidol 5 Mg Tablet) 10 mg PO DAILY [facility] Last Admin: 12/29/21 07:28 Dose: 10 mg Documented by: Hydroxyzine HCl (Hydroxyzine Hcl 25 Mg Tablet) 25 mg PO Q6H PRN PRN Reason: Anxiety Insulin Glargine (Insulin Glargine,Hum.Rec.Anlog 100 Unit/Ml 10 Ml Vial) 45 unit SUBCUT BEDTIME [facility] Last Admin: 12/28/21 22:16 Dose: 45 unit Documented by: Insulin Human Lispro (Insulin Lispro 100 Unit/Ml 3 Ml Vial) 0 unit SUBCUT QIDACHS [facility]; Protocol Stop: 12/29/21 21:50 Last Admin: 12/29/21 07:19 Dose: 10 unit Documented by: Lamotrigine (Lamotrigine 100 Mg Tablet) 100 mg PO DAILY [facility] Last Admin: 12/29/21 07:27 Dose: 100 mg Documented by: Lorazepam (Lorazepam 1 Mg Tablet) 1 mg PO BID PRN PRN Reason: Anxiety Last Admin: 12/28/21 17:17 Dose: 1 mg Documented by: Magnesium Hydroxide (Milk Of Magnesia 30 Ml Oral.Susp) 30 ml PO DAILY PRN PRN Reason: Constipation Metformin HCl (Metformin Hcl Er 500 Mg Tab.Er.24h) 1,000 mg PO DAILY [facility] Last Admin: 12/29/21 07:27 Dose: 1,000 mg Documented by: Olanzapine (Olanzapine 10 Mg Tablet) 10 mg PO DAILY [facility] Last Admin: 12/29/21 07:27 Dose: 10 mg Documented by: Omeprazole (Omeprazole 20 Mg Capsule.) 20 mg PO DAILY [facility] Last Admin: 12/29/21 07:28 Dose: 20 mg Documented by: Pregabalin (Pregabalin 75 Mg Capsule) 225 mg PO DAILY [facility] Last Admin: 12/29/21 07:27 Dose: 225 mg Documented by: Sitagliptin Phosphate (Sitagliptin Phosphate 100 Mg Tablet) 100 mg PO DAILY [facility] Last Admin: 12/29/21 09:05 Dose: 100 mg Documented by: Trazodone HCl (Trazodone Hcl 50 Mg Tablet) 50 mg PO BEDTIME PRN PRN Reason: Insomnia Zolpidem Tartrate (Zolpidem Tartrate 5 Mg Tablet) 10 mg PO BEDTIME [facility] Last Admin: 12/28/21 20:13 Dose: 10 mg Documented by: Allergies Allergies Allergy/AdvReac Type Severity Reaction Status Date / Time quetiapine [From Seroquel] Allergy Severe Difficulty Verified 12/27/21 19:41 Breathing Assessment & Plan Assessment & Plan (1) Adjustment disorder with mixed disturbance of emotions and conduct: Status: Acute Code(s): F43.25 - Adjustment disorder with mixed disturbance of emotions and conduct Plan Patient is a 41-year-old female with history of mood lability, chronic SI and past suicide attempts who presented to the ED with her partner after having made a suicidal comment to her partner, following an intentional overdose of her medications about 3 days prior in a suicide attempt. Patient is minimizing recent attempt however as reported, she has a long history of SI and attempts which are chronic for her. Structural [employer] Worker Apprentice recommends inpatient admission for help with medications to improve stability; however it may also be possible that by now, patient is no longer an imminent risk for harm to self or others. Structural [employer] Worker Apprentice will defer this decision to [facility] crisis assessment who is seeking collateral and exploring patients history in more detail. PLAN: Continue with [facility] assessment Pt says she does not want to continue taking Haldol and will tell her current provider. I spent minutes with the patient and/or on the patient floor today, greater than?50% of which was spent counseling/coordinating care.
--- NOTE | 2021-12-29 18:25 | PC.NURSE ---
Nursing note: Patient arrived to unit approx 6:10pm accompanied by staff. Signed conditional voluntary for admission. Reports depression and anxiety every day . Denies SI/HI plan or intent at this time. Endorses AH, denies VH. Medical history includes IDDM. Allergy to Seroquel. TOX screen positive for Fentanyl and Cannabis. Patient pleasant on approach. Per crisis evaluation patient was assessed by N after called N requesting evaluation due to patients report of A/V hallucination, responding to internal stimuli. Patient misusing medications, left stove on 12/26 with nothing on it, reported overdose on medication prior to admission. Patient has visiting nurse ED [phone]. Nursing admission assessment to be completed.
[2021-12-29 20:43] LABS: Glucose, Whole Blood 272 mg/dL (60-115)
[2021-12-29] MEDS: Insulin Glargine,Hum.rec.anlog 100 UNIT/ML 10 ML VIAL 45 UNIT SUBCUT (20:48)
[2021-12-29] MEDS: Zolpidem Tartrate 5 MG TABLET 10 MG PO (20:51)
[2021-12-29 20:55] VITALS: BP 146/88; PULSE 107; RESP 18; TEMP 36.4; O2SAT 96
[2021-12-29] MEDS: LORazepam 1 MG TABLET PO (23:14)
[2021-12-29] MEDS: Nicotine Polacrilex 2 MG GUM 4 MG BUCCAL (23:15)
[2021-12-30] MEDS: traZODone HCL 50 MG TABLET PO (00:58)
[2021-12-30] MEDS: Acetaminophen 325 MG TABLET 650 MG PO (05:11)
[2021-12-30] MEDS: hydrOXYzine HCL 25 MG TABLET PO ×2 (06:15→21:57)
[2021-12-30] MEDS: LORazepam 1 MG TABLET PO (06:15)
[2021-12-30 08:30] VITALS: BP 134/83; PULSE 85; RESP 20; TEMP 36.2; O2SAT 98
[2021-12-30] MEDS: Pregabalin 75 MG CAPSULE 225 MG PO (08:41)
[2021-12-30] MEDS: metFORMIN HCl ER 500 MG TAB.ER.24H 1000 MG PO (08:41)
[2021-12-30] MEDS: Omeprazole 20 MG CAPSULE.DR PO (08:42)
[2021-12-30] MEDS: cloNIDine HCL 0.1 MG TABLET PO ×2 (08:42→20:31)
[2021-12-30] MEDS: FLUoxetine HCl 20 MG CAPSULE PO (08:42)
[2021-12-30] MEDS: SITagliptin Phosphate 100 MG TABLET PO (08:42)
[2021-12-30] MEDS: lamoTRIgine 100 MG TABLET PO (08:42)
[2021-12-30 09:04] LABS: Glucose, Whole Blood 242 mg/dL (60-115)
[2021-12-30] MEDS: Insulin Lispro 100 UNIT/ML 3 ML VIAL SUBCUT ×4 (09:29→20:28)
[2021-12-30] MEDS: Nicotine 21 MG PATCH.TD24 TRANSDERMA (09:33)
[2021-12-30 09:57] LABS: Estimated Average Glucose 226 mg/dL; Hemoglobin A1c % 9.5 %
[2021-12-30] MEDS: Nicotine Polacrilex 2 MG GUM 4 MG BUCCAL (10:27)
[2021-12-30 10:30] LABS: Cholesterol 262 mg/dL; HDL Cholesterol 42 mg/dL; LDL Cholesterol Calculated 159 mg/dl; Magnesium 1.8 mg/dL (1.6-2.6); Triglycerides 306 mg/dL
[2021-12-30 10:42] LABS: Free T4 (Free Thyroxine) 1.07 ng/dL (0.71-1.85); Thyroid Stimulating Hormone 1.14 uIU/mL (0.32-4.0)
[2021-12-30 10:59] LABS: Folate 5.1 ng/mL (> or = 4.0); Vitamin B12 243 pg/mL (200-900)
[2021-12-30 12:53] LABS: Glucose, Whole Blood 291 mg/dL (60-115)
[2021-12-30] MEDS: chlorproMAZINE HCl 25 MG TABLET 50 MG PO ×3 (14:22→23:04)
--- NOTE | 2021-12-30 14:37 | MHC.CLN ---
NUTRITION DIET CHANGED TO DIABETIC 2000 KCAL. TAKES DM MEDS. A1C=9.5 SHOWING POOR BLOOD GLUCOSE CONTROL.
--- NOTE | 2021-12-30 15:50 | P.PNPSI_ITS ---
Subjective Subjective Date of Service: 12/30/21 Reason For Visit: depression,SI Interim History: pt identifies as targets for Tx her AH, depression, and anxiety. she also reports VH, stating she can see a little old man all dressed in black near her who whispers things to an invisible entity which then says those things to her. they are derogatory comments. suggests in light of her description of the AVH that we will likely not be able to cure her AVH with medications and that she may need to make peace with them and learn to live with them. she appears very surprised by this idea but receives psycho-ed on it. she accepts an increase in her prozac from 40 mg daily to 60 mg daily to address depression and anxiety in the long run. she requests something for the near term as well. she states hydroxyzine has been inadequate and she is allergic to seroquel. she has a h/o abuse of sedative/hypnotics of all classes, essentially, and recently overdosed on ativan. she agrees to a trial of thorazine, both as PRN and as neuroleptic at . per staff, presented with SI and s/p overdose. CAH to harm self. did not sleep at all last night. Mental Status Exam Mental Status Exam Narrative: Pt is alert and oriented; behavior is cooperative, friendly and calm; patient is not in distress; dressed in casual attire, without dentures in, with unkempt hair but adequate hygiene; mood is described as anxious and affect congruent, calm; eye contact appropriate; Speech is normal rate, volume and prosody and not pressured; no psychomotor agitation/retardation present; thought process is organized and goal directed; Thought content is on tx; otherwise pertinent to relevant topics and without any delusional content, paranoid ideations or grandiosity; denies any SI/HI. Endorses chronic AVH; Patients insight and judgment appears impaired as she's minimizing her attempt and need for help stabilizing. Diagnostics Vital Signs (24Hr): Vital Signs - 24 hr 12/29/21 20:55 12/30/21 08:30 Temperature 97.6 F 97.1 F Pulse Rate 107 H 85 Respiratory Rate 18 20 Blood Pressure 146/88 H 134/83 Pulse Oximetry 96 98 BMI result Body Mass Index 37.1 Labs Results: 12/27/21 20:14 12/27/21 20:14 Labs: Laboratory Results - last 48 hr 12/28/21 12/28/21 12/28/21 20:18 21:24 23:00 POC Glucose 316 H 354 H* 333 H Estimat Average Glucose Hemoglobin A1c % Magnesium Triglycerides Cholesterol LDL Cholesterol, Calc HDL Cholesterol Vitamin B12 Folate TSH Free T4 COVID-19 ([facility]) COVID-19 Clin Com 12/29/21 12/29/21 12/29/21 04:58 07:02 12:17 POC Glucose 227 H 371 H* 204 H Estimat Average Glucose Hemoglobin A1c % Magnesium Triglycerides Cholesterol LDL Cholesterol, Calc HDL Cholesterol Vitamin B12 Folate TSH Free T4 COVID-19 ([facility]) COVID-19 [employer] Com 12/29/21 12/29/21 12/30/21 16:14 20:39 08:27 POC Glucose 272 H Estimat Average Glucose 226 Hemoglobin A1c % 9.5 Magnesium Triglycerides Cholesterol LDL Cholesterol, Calc HDL Cholesterol Vitamin B12 Folate TSH Free T4 COVID-19 ([facility]) Negative COVID-19 Clin Com See Note 12/30/21 12/30/21 12/30/21 08:27 08:27 08:40 POC Glucose 242 H Estimat Average Glucose Hemoglobin A1c % Magnesium 1.8 Triglycerides 306 Cholesterol 262 LDL Cholesterol, Calc 159 HDL Cholesterol 42 Vitamin B12 243 Folate 5.1 TSH 1.14 Free T4 1.07 COVID-19 ([facility]) COVID-19 [employer] Com 12/30/21 12:50 POC Glucose 291 H Estimat Average Glucose Hemoglobin A1c % Magnesium Triglycerides Cholesterol LDL Cholesterol, Calc HDL Cholesterol Vitamin B12 Folate TSH Free T4 COVID-19 ([facility]) COVID-19 Clin Com Medications Medications Current Medications Acetaminophen (Acetaminophen 325 Mg Tablet) 650 mg PO Q6H PRN PRN Reason: Headache/Pain Mild Scale (1-3) Last Admin: 12/30/21 05:11 Dose: 650 mg Documented by: Al Hydroxide/Mg Hydroxide (Magnesium Hydrox/Alum Hydrox 30 Ml Oral.Susp) 30 ml PO Q6H PRN PRN Reason: Heartburn/Nausea Chlorpromazine HCl (Chlorpromazine Hcl 25 Mg Tablet) 50 mg PO Q4H PRN PRN Reason: Anxiety Last Admin: 12/30/21 14:22 Dose: 50 mg Documented by: Chlorpromazine HCl (Chlorpromazine Hcl 100 Mg Tablet) 100 mg PO BEDTIME [facility] Clonidine HCl (Clonidine Hcl 0.1 Mg Tablet) 0.1 mg PO BID [facility]; Protocol Last Admin: 12/30/21 08:42 Dose: 0.1 mg Documented by: Dextrose (Dextrose 50 % 25 Gm/50 Ml Syringe) 25 gm IVPUSH Q15M PRN; Protocol PRN Reason: per Hypoglycemia Standing Ord. Dextrose (Dextrose 50 % 25 Gm/50 Ml Syringe) 25 gm IVPUSH Q15M PRN; Protocol PRN Reason: per Hypoglycemia Standing Ord. Fluoxetine HCl (Fluoxetine Hcl 20 Mg Capsule) 60 mg PO DAILY [facility] Glucose (Glucose Gel 15 Gm Gel..Gram.) 15 gm PO Q15M PRN; Protocol PRN Reason: per Hypoglycemia Standing Ord. Glucose (Glucose Gel 15 Gm Gel..Gram.) 15 gm PO Q15M PRN; Protocol PRN Reason: per Hypoglycemia Standing Ord. Hydroxyzine HCl (Hydroxyzine Hcl 25 Mg Tablet) 25 mg PO Q6H PRN PRN Reason: Anxiety Last Admin: 12/30/21 06:15 Dose: 25 mg Documented by: Insulin Glargine (Insulin Glargine,Hum.Rec.Anlog 100 Unit/Ml 10 Ml Vial) 45 unit SUBCUT BEDTIME [facility] Last Admin: 12/29/21 20:48 Dose: 45 unit Documented by: Insulin Human Lispro (Insulin Lispro 100 Unit/Ml 3 Ml Vial) 0 unit SUBCUT QIDACHS [facility]; Protocol Last Admin: 12/30/21 12:54 Dose: 6 unit Documented by: Lamotrigine (Lamotrigine 100 Mg Tablet) 100 mg PO DAILY [facility] Last Admin: 12/30/21 08:42 Dose: 100 mg Documented by: Magnesium Hydroxide (Milk Of Magnesia 30 Ml Oral.Susp) 30 ml PO DAILY PRN PRN Reason: Constipation Metformin HCl (Metformin Hcl Er 500 Mg Tab.Er.24h) 1,000 mg PO DAILY [facility] Last Admin: 12/30/21 08:41 Dose: 1,000 mg Documented by: Nicotine (Nicotine 21 Mg Patch.Td24) 21 mg TRANSDERMA DAILY [facility] Last Admin: 12/30/21 09:33 Dose: 21 mg Documented by: Nicotine Polacrilex (Nicotine Polacrilex 2 Mg Gum) 4 mg BUCCAL Q2H PRN PRN Reason: Nicotine Cravings Last Admin: 12/30/21 10:27 Dose: 4 mg Documented by: Omeprazole (Omeprazole 20 Mg Capsule.) 20 mg PO DAILY [facility] Last Admin: 12/30/21 08:42 Dose: 20 mg Documented by: Pregabalin (Pregabalin 75 Mg Capsule) 225 mg PO DAILY [facility] Last Admin: 12/30/21 08:41 Dose: 225 mg Documented by: Sitagliptin Phosphate (Sitagliptin Phosphate 100 Mg Tablet) 100 mg PO DAILY [facility] Last Admin: 12/30/21 08:42 Dose: 100 mg Documented by: Trazodone HCl (Trazodone Hcl 50 Mg Tablet) 50 mg PO BEDTIME PRN PRN Reason: Insomnia Last Admin: 12/30/21 00:58 Dose: 50 mg Documented by: Zolpidem Tartrate (Zolpidem Tartrate 5 Mg Tablet) 10 mg PO BEDTIME [facility] Last Admin: 12/29/21 20:51 Dose: 10 mg Documented by: Allergies Allergies Allergy/AdvReac Type Severity Reaction Status Date / Time quetiapine [From Seroquel] Allergy Severe Difficulty Verified 12/27/21 19:41 Breathing Assessment & Plan Assessment & Plan (1) Adjustment disorder with mixed disturbance of emotions and conduct: Status: Acute Code(s): F43.25 - Adjustment disorder with mixed disturbance of emotions and conduct Plan Patient is a 41-year-old female with history of mood lability, chronic SI and past suicide attempts who presented to the ED with her partner after having made a suicidal comment to her partner, following an intentional overdose of her medications about 3 days prior in a suicide attempt. Patient is minimizing recent attempt however as reported, she has a long history of SI and attempts which are chronic for her. PLAN: haldol DCed at pt request. as of 12/30 thorazine scheduled for bedtime and PRN anxiety. prozac being increased to 60 mg daily as of 12/31. otherwise previous regimen continued. I spent ___35___ minutes with the patient and/or on the patient floor today, greater than?50% of which was spent counseling/coordinating care. Reason for contiued inpatient stay Substantial Risk for: harm to self, inability to function and rapid decompensation
[2021-12-30 18:00] LABS: Glucose, Whole Blood 227 mg/dL (60-115)
[2021-12-30 20:18] LABS: Glucose, Whole Blood 275 mg/dL (60-115)
[2021-12-30] MEDS: Insulin Glargine,Hum.rec.anlog 100 UNIT/ML 10 ML VIAL 45 UNIT SUBCUT (20:28)
[2021-12-30] MEDS: Zolpidem Tartrate 5 MG TABLET 10 MG PO (20:30)
[2021-12-30] MEDS: chlorproMAZINE HCl 100 MG TABLET PO ×2 (20:30→21:02)
[2021-12-30 20:32] VITALS: BP 133/80; PULSE 109; TEMP 36.4; O2SAT 95
[2021-12-31] MEDS: chlorproMAZINE HCl 25 MG TABLET 50 MG PO ×4 (06:29→23:16)
[2021-12-31 08:00] VITALS: BP 119/82; PULSE 110; RESP 17; TEMP 36.1; O2SAT 98
[2021-12-31] MEDS: Pregabalin 75 MG CAPSULE 225 MG PO (08:48)
[2021-12-31 08:49] LABS: Glucose, Whole Blood 398 mg/dL (60-115)
[2021-12-31] MEDS: FLUoxetine HCl 20 MG CAPSULE 60 MG PO (08:49)
[2021-12-31] MEDS: metFORMIN HCl ER 500 MG TAB.ER.24H 1000 MG PO (08:49)
[2021-12-31] MEDS: SITagliptin Phosphate 100 MG TABLET PO (08:50)
[2021-12-31] MEDS: Omeprazole 20 MG CAPSULE.DR PO (08:50)
[2021-12-31] MEDS: cloNIDine HCL 0.1 MG TABLET PO ×2 (08:50→20:27)
[2021-12-31] MEDS: lamoTRIgine 100 MG TABLET PO (08:50)
[2021-12-31] MEDS: Nicotine 21 MG PATCH.TD24 TRANSDERMA (09:02)
[2021-12-31] MEDS: Insulin Lispro 100 UNIT/ML 3 ML VIAL SUBCUT ×4 (09:13→20:25)
[2021-12-31 12:33] LABS: Glucose, Whole Blood 305 mg/dL (60-115)
--- NOTE | 2021-12-31 14:30 | P.PNPSI_ITS ---
Subjective Subjective Date of Service: 12/31/21 Reason For Visit: depression,SI Interim History: feeling well. took PRN of thorazine in addition to scheduled to fall asleep, so scheduled increased from 200 mg QHS to 250 mg QHS. feels thorazine has been helpful to get the AH to talk lower. interested in PHP. no complaints or requests, asking to remain here for several more days. per staff, c/o AH saying she is stupid, worthless, loser. feels thorazine helpful for AH. Mental Status Exam Mental Status Exam Narrative: Pt is alert and oriented; behavior is cooperative, friendly and calm; patient is not in distress; dressed in casual attire, without dentures in, with unkempt hair but adequate hygiene; mood is described as better and affect congruent, calm; eye contact appropriate; Speech is normal rate, volume and prosody and not pressured; no psychomotor agitation/retardation present; thought process is organized and goal directed; Thought content is on tx; otherwise pertinent to relevant topics and without any delusional content, paranoid ideations or grandiosity; no SI/HI/AVH expressed Diagnostics Vital Signs (24Hr): Vital Signs - 24 hr 12/30/21 20:32 12/31/21 08:00 Temperature 97.5 F 97 F Pulse Rate 109 H 110 H Respiratory Rate 17 Blood Pressure 133/80 119/82 Pulse Oximetry 95 98 BMI result Body Mass Index 37.1 Labs Results: 12/27/21 20:14 12/27/21 20:14 Labs: Laboratory Results - last 48 hr 12/29/21 12/29/21 12/30/21 16:14 20:39 08:27 POC Glucose 272 H Estimat Average Glucose 226 Hemoglobin A1c % 9.5 Magnesium Triglycerides Cholesterol LDL Cholesterol, Calc HDL Cholesterol Vitamin B12 Folate TSH Free T4 COVID-19 ([facility]) Negative COVID-19 Clin Com See Note 12/30/21 12/30/21 12/30/21 08:27 08:27 08:40 POC Glucose 242 H Estimat Average Glucose Hemoglobin A1c % Magnesium 1.8 Triglycerides 306 Cholesterol 262 LDL Cholesterol, Calc 159 HDL Cholesterol 42 Vitamin B12 243 Folate 5.1 TSH 1.14 Free T4 1.07 COVID-19 ([facility]) COVID-19 Clin Com 12/30/21 12/30/21 12/30/21 12:50 17:56 20:11 POC Glucose 291 H 227 H 275 H Estimat Average Glucose Hemoglobin A1c % Magnesium Triglycerides Cholesterol LDL Cholesterol, Calc HDL Cholesterol Vitamin B12 Folate TSH Free T4 COVID-19 ([facility]) COVID-19 [employer] Com 12/31/21 12/31/21 08:44 12:26 POC Glucose 398 H* 305 H Estimat Average Glucose Hemoglobin A1c % Magnesium Triglycerides Cholesterol LDL Cholesterol, Calc HDL Cholesterol Vitamin B12 Folate TSH Free T4 COVID-19 ([facility]) COVID-19 Clin Com Medications Medications Current Medications Acetaminophen (Acetaminophen 325 Mg Tablet) 650 mg PO Q6H PRN PRN Reason: Headache/Pain Mild Scale (1-3) Last Admin: 12/30/21 05:11 Dose: 650 mg Documented by: Al Hydroxide/Mg Hydroxide (Magnesium Hydrox/Alum Hydrox 30 Ml Oral.Susp) 30 ml PO Q6H PRN PRN Reason: Heartburn/Nausea Chlorpromazine HCl (Chlorpromazine Hcl 25 Mg Tablet) 50 mg PO Q4H PRN PRN Reason: Anxiety Last Admin: 12/31/21 13:27 Dose: 50 mg Documented by: Chlorpromazine HCl (Chlorpromazine Hcl 100 Mg Tablet) 100 mg PO BEDTIME [facility] Last Admin: 12/30/21 20:30 Dose: 100 mg Documented by: Chlorpromazine HCl (Chlorpromazine Hcl 100 Mg Tablet) 100 mg PO BEDTIME PRN PRN Reason: insomnia Last Admin: 12/30/21 21:02 Dose: 100 mg Documented by: Clonidine HCl (Clonidine Hcl 0.1 Mg Tablet) 0.1 mg PO BID [facility]; Protocol Last Admin: 12/31/21 08:50 Dose: 0.1 mg Documented by: Dextrose (Dextrose 50 % 25 Gm/50 Ml Syringe) 25 gm IVPUSH Q15M PRN; Protocol PRN Reason: per Hypoglycemia Standing Ord. Dextrose (Dextrose 50 % 25 Gm/50 Ml Syringe) 25 gm IVPUSH Q15M PRN; Protocol PRN Reason: per Hypoglycemia Standing Ord. Fluoxetine HCl (Fluoxetine Hcl 20 Mg Capsule) 60 mg PO DAILY [facility] Last Admin: 12/31/21 08:49 Dose: 60 mg Documented by: Glucose (Glucose Gel 15 Gm Gel..Gram.) 15 gm PO Q15M PRN; Protocol PRN Reason: per Hypoglycemia Standing Ord. Glucose (Glucose Gel 15 Gm Gel..Gram.) 15 gm PO Q15M PRN; Protocol PRN Reason: per Hypoglycemia Standing Ord. Hydroxyzine HCl (Hydroxyzine Hcl 25 Mg Tablet) 25 mg PO Q6H PRN PRN Reason: Anxiety Last Admin: 12/30/21 21:57 Dose: 25 mg Documented by: Insulin Glargine (Insulin Glargine,Hum.Rec.Anlog 100 Unit/Ml 10 Ml Vial) 45 unit SUBCUT BEDTIME [facility] Last Admin: 12/30/21 20:28 Dose: 45 unit Documented by: Insulin Human Lispro (Insulin Lispro 100 Unit/Ml 3 Ml Vial) 0 unit SUBCUT QIDACHS [facility]; Protocol Last Admin: 12/31/21 13:18 Dose: 8 unit Documented by: Lamotrigine (Lamotrigine 100 Mg Tablet) 100 mg PO DAILY [facility] Last Admin: 12/31/21 08:50 Dose: 100 mg Documented by: Magnesium Hydroxide (Milk Of Magnesia 30 Ml Oral.Susp) 30 ml PO DAILY PRN PRN Reason: Constipation Metformin HCl (Metformin Hcl Er 500 Mg Tab.Er.24h) 1,000 mg PO DAILY [facility] Last Admin: 12/31/21 08:49 Dose: 1,000 mg Documented by: Nicotine (Nicotine 21 Mg Patch.Td24) 21 mg TRANSDERMA DAILY [facility] Last Admin: 12/31/21 09:02 Dose: 21 mg Documented by: Nicotine Polacrilex (Nicotine Polacrilex 2 Mg Gum) 4 mg BUCCAL Q2H PRN PRN Reason: Nicotine Cravings Last Admin: 12/30/21 10:27 Dose: 4 mg Documented by: Omeprazole (Omeprazole 20 Mg Capsule.Dr) 20 mg PO DAILY [facility] Last Admin: 12/31/21 08:50 Dose: 20 mg Documented by: Pregabalin (Pregabalin 75 Mg Capsule) 225 mg PO DAILY [facility] Last Admin: 12/31/21 08:48 Dose: 225 mg Documented by: Sitagliptin Phosphate (Sitagliptin Phosphate 100 Mg Tablet) 100 mg PO DAILY [facility] Last Admin: 12/31/21 08:50 Dose: 100 mg Documented by: Zolpidem Tartrate (Zolpidem Tartrate 5 Mg Tablet) 10 mg PO BEDTIME [facility] Last Admin: 12/30/21 20:30 Dose: 10 mg Documented by: Allergies Allergies Allergy/AdvReac Type Severity Reaction Status Date / Time quetiapine [From Seroquel] Allergy Severe Difficulty Verified 12/27/21 19:41 Breathing Assessment & Plan Assessment & Plan (1) Schizoaffective disorder, depressive type: Status: Acute Code(s): F25.1 - Schizoaffective disorder, depressive type Plan Patient is a 41-year-old female with history of mood lability, chronic SI and past suicide attempts who presented to the ED with her partner after having made a suicidal comment to her partner, following an intentional overdose of her medications about 3 days prior in a suicide attempt. Patient is minimizing recent attempt however as reported, she has a long history of SI and attempts which are chronic for her. PLAN: haldol DCed at pt request. as of 12/30 thorazine scheduled for bedtime and PRN anxiety. prozac being increased to 60 mg daily as of 12/31. otherwise previous regimen continued. I spent ___20___ minutes with the patient and/or on the patient floor today, greater than?50% of which was spent counseling/coordinating care. Reason for contiued inpatient stay Substantial Risk for: harm to self, inability to function and rapid decompensation
[2021-12-31 17:29] LABS: Glucose, Whole Blood 254 mg/dL (60-115)
[2021-12-31 20:18] LABS: Glucose, Whole Blood 348 mg/dL (60-115)
[2021-12-31] MEDS: Insulin Glargine,Hum.rec.anlog 100 UNIT/ML 10 ML VIAL 45 UNIT SUBCUT (20:25)
[2021-12-31] MEDS: chlorproMAZINE HCl 100 MG TABLET PO ×2 (20:27→21:57)
[2021-12-31 20:31] VITALS: BP 117/61; PULSE 109; TEMP 36.7; O2SAT 96
[2021-12-31] MEDS: bisacodyL 5 MG TABLET.DR PO (21:57)
[2021-12-31] MEDS: Zolpidem Tartrate 5 MG TABLET 10 MG PO (21:57)
[2021-12-31] MEDS: hydrOXYzine HCL 25 MG TABLET PO (23:17)
[2022-01-01 06:00] VITALS: BP 116/69; PULSE 114; RESP 18; TEMP 36.5; O2SAT 97
[2022-01-01 07:54] LABS: Glucose, Whole Blood 271 mg/dL (60-115)
[2022-01-01] MEDS: Pregabalin 75 MG CAPSULE 225 MG PO (08:06)
[2022-01-01] MEDS: metFORMIN HCl ER 500 MG TAB.ER.24H 1000 MG PO (08:06)
[2022-01-01] MEDS: Omeprazole 20 MG CAPSULE.DR PO (08:07)
[2022-01-01] MEDS: SITagliptin Phosphate 100 MG TABLET PO (08:07)
[2022-01-01] MEDS: lamoTRIgine 100 MG TABLET PO (08:07)
[2022-01-01] MEDS: Nicotine 21 MG PATCH.TD24 TRANSDERMA (08:08)
[2022-01-01] MEDS: FLUoxetine HCl 20 MG CAPSULE 60 MG PO (08:08)
[2022-01-01] MEDS: cloNIDine HCL 0.1 MG TABLET PO ×2 (08:09→21:15)
[2022-01-01] MEDS: Nicotine Polacrilex 2 MG GUM 4 MG BUCCAL (08:17)
[2022-01-01] MEDS: Acetaminophen 325 MG TABLET 650 MG PO ×2 (08:17→17:22)
[2022-01-01] MEDS: Insulin Lispro 100 UNIT/ML 3 ML VIAL SUBCUT ×6 (09:16→21:20)
[2022-01-01 12:35] LABS: Glucose, Whole Blood 302 mg/dL (60-115)
[2022-01-01] MEDS: hydrOXYzine HCL 25 MG TABLET PO ×2 (12:49→22:55)
--- NOTE | 2022-01-01 13:06 | HO.PSYCHPN ---
Subjective Subjective Date of Service: 01/01/22 Reason For Visit: depression,SI Interim History: calm and cooperative. sleeping better, voices continue to be lower. informed her DM is uncontrolled and medicine consult would be placed for advice. also discussed her apparent sedation throughout the day and MD suggested decreasing dose of thorazine PRNs to help with sedation. pt agreed to change. per staff, sleepy. anx 8 dep 3. appetite good. repeated awakenings last NOC. OOB at 0300, then back to sleep until 0700. pleasant, interactive. Mental Status Exam Mental Status Exam Narrative: Pt is alert and oriented; behavior is cooperative, friendly and calm; patient is not in distress; dressed in casual attire, without dentures in, with unkempt hair but adequate hygiene; mood is described as better and affect congruent, calm; eye contact appropriate; Speech is normal rate, volume and prosody and not pressured; no psychomotor agitation/retardation present; thought process is organized and goal directed; Thought content is on tx; otherwise pertinent to relevant topics and without any delusional content, paranoid ideations or grandiosity; no SI/HI/AVH expressed Diagnostics Vital Signs (24Hr): Vital Signs - 24 hr 12/31/21 20:31 01/01/22 06:00 Temperature 98.0 F 97.7 F Pulse Rate 109 H 114 H Respiratory Rate 18 Blood Pressure 117/61 116/69 Pulse Oximetry 96 97 BMI result Body Mass Index 37.1 Labs Results: 12/27/21 20:14 12/27/21 20:14 Labs: Laboratory Results - last 48 hr 12/30/21 12/30/21 12/31/21 17:56 20:11 08:44 POC Glucose 227 H 275 H 398 H* 12/31/21 12/31/21 12/31/21 12:26 17:25 20:12 POC Glucose 305 H 254 H 348 H 01/01/22 01/01/22 07:50 12:30 POC Glucose 271 H 302 H Medications Medications Current Medications Acetaminophen (Acetaminophen 325 Mg Tablet) 650 mg PO Q6H PRN PRN Reason: Headache/Pain Mild Scale (1-3) Last Admin: 01/01/22 08:17 Dose: 650 mg Documented by: Al Hydroxide/Mg Hydroxide (Magnesium Hydrox/Alum Hydrox 30 Ml Oral.Susp) 30 ml PO Q6H PRN PRN Reason: Heartburn/Nausea Bisacodyl (Bisacodyl 5 Mg Tablet.Dr) 5 mg PO DAILY [facility] Chlorpromazine HCl (Chlorpromazine Hcl 100 Mg Tablet) 100 mg PO BEDTIME [facility] Last Admin: 12/31/21 20:27 Dose: 100 mg Documented by: Chlorpromazine HCl (Chlorpromazine Hcl 100 Mg Tablet) 100 mg PO BEDTIME PRN PRN Reason: insomnia Last Admin: 12/31/21 21:57 Dose: 100 mg Documented by: Chlorpromazine HCl (Chlorpromazine Hcl 25 Mg Tablet) 25 mg PO Q4H PRN PRN Reason: Anxiety Clonidine HCl (Clonidine Hcl 0.1 Mg Tablet) 0.1 mg PO BID [facility]; Protocol Last Admin: 01/01/22 08:09 Dose: 0.1 mg Documented by: Dextrose (Dextrose 50 % 25 Gm/50 Ml Syringe) 25 gm IVPUSH Q15M PRN; Protocol PRN Reason: per Hypoglycemia Standing Ord. Dextrose (Dextrose 50 % 25 Gm/50 Ml Syringe) 25 gm IVPUSH Q15M PRN; Protocol PRN Reason: per Hypoglycemia Standing Ord. Fluoxetine HCl (Fluoxetine Hcl 20 Mg Capsule) 60 mg PO DAILY [facility] Last Admin: 01/01/22 08:08 Dose: 60 mg Documented by: Glucose (Glucose Gel 15 Gm Gel..Gram.) 15 gm PO Q15M PRN; Protocol PRN Reason: per Hypoglycemia Standing Ord. Glucose (Glucose Gel 15 Gm Gel..Gram.) 15 gm PO Q15M PRN; Protocol PRN Reason: per Hypoglycemia Standing Ord. Hydroxyzine HCl (Hydroxyzine Hcl 25 Mg Tablet) 25 mg PO Q6H PRN PRN Reason: Anxiety Last Admin: 01/01/22 12:49 Dose: 25 mg Documented by: Insulin Glargine (Insulin Glargine,Hum.Rec.Anlog 100 Unit/Ml 10 Ml Vial) 45 unit SUBCUT BEDTIME [facility] Last Admin: 12/31/21 20:25 Dose: 45 unit Documented by: Insulin Human Lispro (Insulin Lispro 100 Unit/Ml 3 Ml Vial) 0 unit SUBCUT QIDACHS [facility]; Protocol Last Admin: 01/01/22 13:05 Dose: 8 unit Documented by: Lamotrigine (Lamotrigine 100 Mg Tablet) 100 mg PO DAILY [facility] Last Admin: 01/01/22 08:07 Dose: 100 mg Documented by: Magnesium Hydroxide (Milk Of Magnesia 30 Ml Oral.Susp) 30 ml PO DAILY PRN PRN Reason: Constipation Metformin HCl (Metformin Hcl Er 500 Mg Tab.Er.24h) 1,000 mg PO DAILY [facility] Last Admin: 01/01/22 08:06 Dose: 1,000 mg Documented by: Nicotine (Nicotine 21 Mg Patch.Td24) 21 mg TRANSDERMA DAILY [facility] Last Admin: 01/01/22 08:08 Dose: 21 mg Documented by: Nicotine Polacrilex (Nicotine Polacrilex 2 Mg Gum) 4 mg BUCCAL Q2H PRN PRN Reason: Nicotine Cravings Last Admin: 01/01/22 08:17 Dose: 4 mg Documented by: Omeprazole (Omeprazole 20 Mg Capsule.Dr) 20 mg PO DAILY [facility] Last Admin: 01/01/22 08:07 Dose: 20 mg Documented by: Pregabalin (Pregabalin 75 Mg Capsule) 225 mg PO DAILY [facility] Last Admin: 01/01/22 08:06 Dose: 225 mg Documented by: Sitagliptin Phosphate (Sitagliptin Phosphate 100 Mg Tablet) 100 mg PO DAILY [facility] Last Admin: 01/01/22 08:07 Dose: 100 mg Documented by: Zolpidem Tartrate (Zolpidem Tartrate 5 Mg Tablet) 10 mg PO BEDTIME [facility] Last Admin: 12/31/21 21:57 Dose: 10 mg Documented by: Allergies Allergies Allergy/AdvReac Type Severity Reaction Status Date / Time quetiapine [From Seroquel] Allergy Severe Difficulty Verified 12/27/21 19:41 Breathing Assessment & Plan Assessment & Plan (1) Schizoaffective disorder, depressive type: Status: Acute Code(s): F25.1 - Schizoaffective disorder, depressive type Plan Patient is a 41-year-old female with history of mood lability, chronic SI and past suicide attempts who presented to the ED with her partner after having made a suicidal comment to her partner, following an intentional overdose of her medications about 3 days prior in a suicide attempt. Patient is minimizing recent attempt however as reported, she has a long history of SI and attempts which are chronic for her. PLAN: haldol DCed at pt request. as of 12/30 thorazine scheduled for bedtime and PRN anxiety. prozac increased to 60 mg daily as of 12/31. thorazine PRNs decreased from 50 mg each to 25 mg each due to daytime sedation. asked why not ativan - MD explained that is what thorazine is for (pt has h/o benzo dependence and misuse). otherwise previous regimen continued. I spent ___25___ minutes with the patient and/or on the patient floor today, greater than?50% of which was spent counseling/coordinating care. Reason for contiued inpatient stay Substantial Risk for: harm to self, inability to function and rapid decompensation
[2022-01-01] MEDS: chlorproMAZINE HCl 25 MG TABLET PO ×3 (14:26→22:55)
[2022-01-01] MEDS: bisacodyL 5 MG TABLET.DR PO (14:26)
--- NOTE | 2022-01-01 14:57 | PM.EVENT ---
Event Note Date of Service: 01/01/22 Event Note: S Asked to see the patient for uncontrolled blood glucose Pt seen on the unit. She walks into the room with 2 large cookies in her hand. She reports she was diagnosed with DM in the last year. She is on multiple medications for DM. O Vitals - last documented Gen - NAD Chest - no respiratory distress Abd - NT Neuro - non-focal A/P: 41 yo F with a history of DM on multiple medications at home for DM who is admitted to the inpatient psych unit. Medical consult requested for uncontrolled DM. Continue current regime -- but will add scheduled humalog 5 units pre-meal in addition to sliding scale Furthermore, the patient appears to be non-compliant with her diet (she walked into the exam room with 2 large cookies). She has been advised to keep a strict diet. The patient is not on meal time insulin at home, but it appears that she may likely require it. Will sign off. Please re-consult PRN.
[2022-01-01 17:46] LABS: Glucose, Whole Blood 222 mg/dL (60-115)
[2022-01-01 18:00] VITALS: BP 150/73; PULSE 105; RESP 17; TEMP 36.5; O2SAT 98
[2022-01-01 21:10] LABS: Glucose, Whole Blood 250 mg/dL (60-115)
[2022-01-01] MEDS: Zolpidem Tartrate 5 MG TABLET 10 MG PO (21:14)
[2022-01-01] MEDS: chlorproMAZINE HCl 100 MG TABLET PO (21:14)
[2022-01-01] MEDS: Insulin Glargine,Hum.rec.anlog 100 UNIT/ML 10 ML VIAL 45 UNIT SUBCUT (21:19)
[2022-01-02] MEDS: chlorproMAZINE HCl 25 MG TABLET PO ×2 (04:14→13:16)
[2022-01-02] MEDS: hydrOXYzine HCL 25 MG TABLET PO ×2 (04:14→13:16)
[2022-01-02 08:45] VITALS: BP 122/59; PULSE 112; RESP 18; TEMP 36.2; O2SAT 97
[2022-01-02] MEDS: metFORMIN HCl ER 500 MG TAB.ER.24H 1000 MG PO (08:51)
[2022-01-02] MEDS: Pregabalin 75 MG CAPSULE 225 MG PO (08:52)
[2022-01-02] MEDS: SITagliptin Phosphate 100 MG TABLET PO (08:52)
[2022-01-02] MEDS: lamoTRIgine 100 MG TABLET PO (08:53)
[2022-01-02] MEDS: cloNIDine HCL 0.1 MG TABLET PO ×2 (08:53→20:28)
[2022-01-02] MEDS: Omeprazole 20 MG CAPSULE.DR PO (08:53)
[2022-01-02] MEDS: FLUoxetine HCl 20 MG CAPSULE 60 MG PO (08:54)
[2022-01-02] MEDS: Nicotine 21 MG PATCH.TD24 TRANSDERMA (08:55)
[2022-01-02 09:05] LABS: Glucose, Whole Blood 269 mg/dL (60-115)
[2022-01-02] MEDS: Insulin Lispro 100 UNIT/ML 3 ML VIAL SUBCUT ×8 (09:28→20:27)
--- NOTE | 2022-01-02 10:46 | HO.PSYCHPN ---
Subjective Subjective Date of Service: 01/02/22 Reason For Visit: depression,SI Subjective Notes: Conditional Voluntary Interim History: The nursing staff reported that the patient slept poorly. Also her fasting blood sugars goes on the range of 200-300. She was recently started on Lantus. The staff reported that she has being pleasant and cooperative, fully compliant with treatment. She has been taking Thorazine. On interview the patient reports that she is having constipation and she feels uncomfortable. She agreed to add senna to help her with those symptoms. She denies active safety concerns. Mental Status Exam Mental Status Exam Patient Appearance: Appropriate Patient Orientation: Person and Situation Level of Consciousness: Awake and Appropriate Patient Behavior: Cooperative Mood Description: Appropriate and Labile Affect Description: Constricted Ability to Follow Directions: Good Speech Pattern: Clear Hallucinations: None Delusions: Paranoid Ideation Thought Process: Distracted and Slowed Thinking Thought Content: positive for [place], positive for Circumstantial and positive for Poverty of Content Judgement: Fair Diagnostics Vital Signs (24Hr): Vital Signs - 24 hr 01/01/22 18:00 01/02/22 08:45 Temperature 97.7 F 97.2 F Pulse Rate 105 H 112 H Respiratory Rate 17 18 Blood Pressure 150/73 H 122/59 L Pulse Oximetry 98 97 BMI result Body Mass Index 37.1 Labs Results: 12/27/21 20:14 12/27/21 20:14 Labs: Laboratory Results - last 48 hr 12/31/21 12/31/21 12/31/21 12:26 17:25 20:12 POC Glucose 305 H 254 H 348 H 01/01/22 01/01/22 01/01/22 07:50 12:30 17:41 POC Glucose 271 H 302 H 222 H 01/01/22 01/02/22 21:05 08:47 POC Glucose 250 H 269 H Medications Medications Current Medications Acetaminophen (Acetaminophen 325 Mg Tablet) 650 mg PO Q6H PRN PRN Reason: Headache/Pain Mild Scale (1-3) Last Admin: 01/01/22 17:22 Dose: 650 mg Documented by: Al Hydroxide/Mg Hydroxide (Magnesium Hydrox/Alum Hydrox 30 Ml Oral.Susp) 30 ml PO Q6H PRN PRN Reason: Heartburn/Nausea Bisacodyl (Bisacodyl 5 Mg Tablet.) 5 mg PO DAILY [facility] Last Admin: 01/01/22 14:26 Dose: 5 mg Documented by: Chlorpromazine HCl (Chlorpromazine Hcl 100 Mg Tablet) 100 mg PO BEDTIME [facility] Last Admin: 01/01/22 21:14 Dose: 100 mg Documented by: Chlorpromazine HCl (Chlorpromazine Hcl 100 Mg Tablet) 100 mg PO BEDTIME PRN PRN Reason: insomnia Last Admin: 12/31/21 21:57 Dose: 100 mg Documented by: Chlorpromazine HCl (Chlorpromazine Hcl 25 Mg Tablet) 25 mg PO Q4H PRN PRN Reason: Anxiety Last Admin: 01/02/22 04:14 Dose: 25 mg Documented by: Clonidine HCl (Clonidine Hcl 0.1 Mg Tablet) 0.1 mg PO BID [facility]; Protocol Last Admin: 01/02/22 08:53 Dose: 0.1 mg Documented by: Dextrose (Dextrose 50 % 25 Gm/50 Ml Syringe) 25 gm IVPUSH Q15M PRN; Protocol PRN Reason: per Hypoglycemia Standing Ord. Dextrose (Dextrose 50 % 25 Gm/50 Ml Syringe) 25 gm IVPUSH Q15M PRN; Protocol PRN Reason: per Hypoglycemia Standing Ord. Fluoxetine HCl (Fluoxetine Hcl 20 Mg Capsule) 60 mg PO DAILY [facility] Last Admin: 01/02/22 08:54 Dose: 60 mg Documented by: Glucose (Glucose Gel 15 Gm Gel..Gram.) 15 gm PO Q15M PRN; Protocol PRN Reason: per Hypoglycemia Standing Ord. Glucose (Glucose Gel 15 Gm Gel..Gram.) 15 gm PO Q15M PRN; Protocol PRN Reason: per Hypoglycemia Standing Ord. Hydroxyzine HCl (Hydroxyzine Hcl 25 Mg Tablet) 25 mg PO Q6H PRN PRN Reason: Anxiety Last Admin: 01/02/22 04:14 Dose: 25 mg Documented by: Insulin Glargine (Insulin Glargine,Hum.Rec.Anlog 100 Unit/Ml 10 Ml Vial) 45 unit SUBCUT BEDTIME [facility] Last Admin: 01/01/22 21:19 Dose: 45 unit Documented by: Insulin Human Lispro (Insulin Lispro 100 Unit/Ml 3 Ml Vial) 0 unit SUBCUT QIDACHS [facility]; Protocol Last Admin: 01/02/22 09:28 Dose: 6 unit Documented by: Insulin Human Lispro (Insulin Lispro 100 Unit/Ml 3 Ml Vial) 5 unit SUBCUT QIDACHS [facility] Last Admin: 01/02/22 09:29 Dose: 5 unit Documented by: Lamotrigine (Lamotrigine 100 Mg Tablet) 100 mg PO DAILY [facility] Last Admin: 01/02/22 08:53 Dose: 100 mg Documented by: Magnesium Hydroxide (Milk Of Magnesia 30 Ml Oral.Susp) 30 ml PO DAILY PRN PRN Reason: Constipation Metformin HCl (Metformin Hcl Er 500 Mg Tab.Er.24h) 1,000 mg PO DAILY [facility] Last Admin: 01/02/22 08:51 Dose: 1,000 mg Documented by: Nicotine (Nicotine 21 Mg Patch.Td24) 21 mg TRANSDERMA DAILY [facility] Last Admin: 01/02/22 08:55 Dose: 21 mg Documented by: Nicotine Polacrilex (Nicotine Polacrilex 2 Mg Gum) 4 mg BUCCAL Q2H PRN PRN Reason: Nicotine Cravings Last Admin: 01/01/22 08:17 Dose: 4 mg Documented by: Omeprazole (Omeprazole 20 Mg Capsule.) 20 mg PO DAILY [facility] Last Admin: 01/02/22 08:53 Dose: 20 mg Documented by: Pregabalin (Pregabalin 75 Mg Capsule) 225 mg PO DAILY [facility] Last Admin: 01/02/22 08:52 Dose: 225 mg Documented by: Sitagliptin Phosphate (Sitagliptin Phosphate 100 Mg Tablet) 100 mg PO DAILY [facility] Last Admin: 01/02/22 08:52 Dose: 100 mg Documented by: Zolpidem Tartrate (Zolpidem Tartrate 5 Mg Tablet) 10 mg PO BEDTIME [facility] Last Admin: 01/01/22 21:14 Dose: 10 mg Documented by: Allergies Allergies Allergy/AdvReac Type Severity Reaction Status Date / Time quetiapine [From Seroquel] Allergy Severe Difficulty Verified 12/27/21 19:41 Breathing Assessment & Plan Assessment & Plan (1) Schizoaffective disorder, depressive type: Status: Acute Code(s): F25.1 - Schizoaffective disorder, depressive type Plan Patient is a 41-year-old female with history of mood lability, chronic SI and past suicide attempts who presented to the ED with her partner after having made a suicidal comment to her partner, following an intentional overdose of her medications about 3 days prior in a suicide attempt. Patient is minimizing recent attempt however as reported, she has a long history of SI and attempts which are chronic for her. PLAN: haldol DCed at pt request. as of 12/30 thorazine scheduled for bedtime and PRN anxiety. prozac increased to 60 mg daily as of 12/31. thorazine PRNs decreased from 50 mg each to 25 mg each due to daytime sedation. asked why not kobe - explained that is what thorazine is for (pt has h/o benzo dependence and misuse). otherwise previous regimen continued. On 01/02, added senna bid I spent ___20___ minutes with the patient and/or on the patient floor today, greater than?50% of which was spent counseling/coordinating care. Reason for contiued inpatient stay Substantial Risk for: inability to function, rapid decompensation and med/psych decompensation
[2022-01-02 13:01] LABS: Glucose, Whole Blood 254 mg/dL (60-115)
[2022-01-02] MEDS: bisacodyL 5 MG TABLET.DR PO (13:10)
[2022-01-02] MEDS: chlorproMAZINE HCl 25 MG TABLET 50 MG PO (14:45)
--- NOTE | 2022-01-02 15:07 | PC.NURSE ---
Patient reported increased intensity of AH despite PRN medications given. She also reports being anxious about possible discharge Tuesday I'm not ready... I tried to off myself- I don't even remember doing this. Dr Lopez notified of AH, patient medicated as ordered for continued AH. Discussed patient anxiety re: discharge- encouraged patient to have goals she would like to meet before discharge. Patient describes AH currently as : it's like having 10 hamsters running on wheels in my head.
[2022-01-02 17:30] LABS: Glucose, Whole Blood 302 mg/dL (60-115)
[2022-01-02 19:23] VITALS: BP 121/73; PULSE 107; RESP 20; TEMP 36.2; O2SAT 98
[2022-01-02 20:19] LABS: Glucose, Whole Blood 293 mg/dL (60-115)
[2022-01-02] MEDS: Insulin Glargine,Hum.rec.anlog 100 UNIT/ML 10 ML VIAL 45 UNIT SUBCUT (20:27)
[2022-01-02] MEDS: Zolpidem Tartrate 5 MG TABLET 10 MG PO (20:28)
[2022-01-02] MEDS: chlorproMAZINE HCl 100 MG TABLET PO ×2 (20:28→22:42)
[2022-01-02] MEDS: Nicotine Polacrilex 2 MG GUM 4 MG BUCCAL (22:39)
[2022-01-02] MEDS: Sennosides 8.6 MG TABLET PO (22:42)
[2022-01-03] MEDS: chlorproMAZINE HCl 25 MG TABLET PO ×4 (04:45→17:38)
[2022-01-03 08:15] VITALS: BP 131/74; PULSE 118; RESP 18; TEMP 36.2; O2SAT 99
[2022-01-03] MEDS: Pregabalin 75 MG CAPSULE 225 MG PO (08:22)
[2022-01-03 08:23] LABS: Glucose, Whole Blood 291 mg/dL (60-115)
[2022-01-03] MEDS: metFORMIN HCl ER 500 MG TAB.ER.24H 1000 MG PO (08:23)
[2022-01-03] MEDS: Sennosides 8.6 MG TABLET PO ×2 (08:23→21:00)
[2022-01-03] MEDS: FLUoxetine HCl 20 MG CAPSULE 60 MG PO (08:24)
[2022-01-03] MEDS: Omeprazole 20 MG CAPSULE.DR PO (08:25)
[2022-01-03] MEDS: bisacodyL 5 MG TABLET.DR PO (08:25)
[2022-01-03] MEDS: cloNIDine HCL 0.1 MG TABLET PO ×2 (08:26→21:00)
[2022-01-03] MEDS: SITagliptin Phosphate 100 MG TABLET PO (08:26)
[2022-01-03] MEDS: lamoTRIgine 100 MG TABLET PO (08:26)
[2022-01-03] MEDS: Nicotine 21 MG PATCH.TD24 TRANSDERMA (08:27)
[2022-01-03 09:00] LABS: Anion Gap 13 (12-20); Blood Urea Nitrogen 11 mg/dL (9-16); Calcium 9.9 mg/dL (8.4-10.2); Carbon Dioxide 26 mmol/L (22-29); Chloride 100 mmol/L (96-108); Creatinine Clr Calc Pharmacy 107.4; Estimated Glomerular Filt Rate > 60; Glucose Random 329 mg/dL (60-115); Potassium 4.5 mmol/L (3.3-5.1); Sodium 134 mmol/L (135-145)
[2022-01-03] MEDS: Insulin Lispro 100 UNIT/ML 3 ML VIAL SUBCUT ×8 (09:23→21:03)
[2022-01-03] MEDS: hydrOXYzine HCL 25 MG TABLET PO (11:06)
--- NOTE | 2022-01-03 12:27 | P.PNPSI_ITS ---
Subjective Subjective Date of Service: 01/03/22 Reason For Visit: depression,SI Subjective Notes: Conditional Voluntary Interim History: The nursing staff reported the patient required extra Thorazine in the morning. She was incontinent last night. She admitted still auditory hallucinations, she had been anxious since she was not feeling safe for discharge which. On interview, the patient admitted some auditory hallucination. We discussed risks, benefits, side-effects and alternatives and she agreed to increase Thorazine during the day. Mental Status Exam Mental Status Exam Patient Appearance: Appropriate Patient Orientation: Person, Place and Situation Level of Consciousness: Appropriate Patient Behavior: Guarded and Cooperative Mood Description: Withdrawn Affect Description: Constricted Patient Cognition Impaired: No Ability to Follow Directions: Fair Speech Pattern: Clear Hallucinations: Auditory Delusions: Paranoid Ideation Thought Process: Linear Thought Content: positive for [place] and positive for Poverty of Content Judgement: Fair Diagnostics Vital Signs (24Hr): Vital Signs - 24 hr 01/02/22 19:23 01/03/22 08:15 Temperature 97.2 F 97.2 F Pulse Rate 107 H 118 H Respiratory Rate 20 18 Blood Pressure 121/73 131/74 Pulse Oximetry 98 99 BMI result Body Mass Index 37.1 Labs Results: 12/27/21 20:14 01/03/22 08:30 Labs: Laboratory Results - last 48 hr 01/01/22 01/01/22 01/01/22 12:30 17:41 21:05 Sodium Potassium Chloride Carbon Dioxide Anion Gap BUN Creatinine Estim Creat Clear Calc Estimated GFR POC Glucose 302 H 222 H 250 H Random Glucose Calcium 01/02/22 01/02/22 01/02/22 08:47 12:56 17:26 Sodium Potassium Chloride Carbon Dioxide Anion Gap BUN Creatinine Estim Creat Clear Calc Estimated GFR POC Glucose 269 H 254 H 302 H Random Glucose Calcium 01/02/22 01/03/22 01/03/22 20:15 08:19 08:30 Sodium 134 L Potassium 4.5 D Chloride 100 Carbon Dioxide 26 Anion Gap 13 BUN 11 Creatinine 0.85 Estim Creat Clear Calc 107.4 Estimated GFR > 60 POC Glucose 293 H 291 H Random Glucose 329 H Calcium 9.9 D Medications Medications Current Medications Acetaminophen (Acetaminophen 325 Mg Tablet) 650 mg PO Q6H PRN PRN Reason: Headache/Pain Mild Scale (1-3) Last Admin: 01/01/22 17:22 Dose: 650 mg Documented by: Al Hydroxide/Mg Hydroxide (Magnesium Hydrox/Alum Hydrox 30 Ml Oral.Susp) 30 ml PO Q6H PRN PRN Reason: Heartburn/Nausea Bisacodyl (Bisacodyl 5 Mg Tablet.Dr) 5 mg PO DAILY [facility] Last Admin: 01/03/22 08:25 Dose: 5 mg Documented by: Chlorpromazine HCl (Chlorpromazine Hcl 100 Mg Tablet) 100 mg PO BEDTIME [facility] Last Admin: 01/02/22 20:28 Dose: 100 mg Documented by: Chlorpromazine HCl (Chlorpromazine Hcl 100 Mg Tablet) 100 mg PO BEDTIME PRN PRN Reason: insomnia Last Admin: 01/02/22 22:42 Dose: 100 mg Documented by: Chlorpromazine HCl (Chlorpromazine Hcl 25 Mg Tablet) 25 mg PO Q4H PRN PRN Reason: Anxiety Last Admin: 01/03/22 11:06 Dose: 25 mg Documented by: Chlorpromazine HCl (Chlorpromazine Hcl 25 Mg Tablet) 25 mg PO BID@0800,1700 [facility] Clonidine HCl (Clonidine Hcl 0.1 Mg Tablet) 0.1 mg PO BID [facility]; Protocol Last Admin: 01/03/22 08:26 Dose: 0.1 mg Documented by: Dextrose (Dextrose 50 % 25 Gm/50 Ml Syringe) 25 gm IVPUSH Q15M PRN; Protocol PRN Reason: per Hypoglycemia Standing Ord. Dextrose (Dextrose 50 % 25 Gm/50 Ml Syringe) 25 gm IVPUSH Q15M PRN; Protocol PRN Reason: per Hypoglycemia Standing Ord. Fluoxetine HCl (Fluoxetine Hcl 20 Mg Capsule) 60 mg PO DAILY [facility] Last Admin: 01/03/22 08:24 Dose: 60 mg Documented by: Glucose (Glucose Gel 15 Gm Gel..Gram.) 15 gm PO Q15M PRN; Protocol PRN Reason: per Hypoglycemia Standing Ord. Glucose (Glucose Gel 15 Gm Gel..Gram.) 15 gm PO Q15M PRN; Protocol PRN Reason: per Hypoglycemia Standing Ord. Hydroxyzine HCl (Hydroxyzine Hcl 25 Mg Tablet) 25 mg PO Q6H PRN PRN Reason: Anxiety Last Admin: 01/03/22 11:06 Dose: 25 mg Documented by: Insulin Glargine (Insulin Glargine,Hum.Rec.Anlog 100 Unit/Ml 10 Ml Vial) 45 unit SUBCUT BEDTIME [facility] Last Admin: 01/02/22 20:27 Dose: 45 unit Documented by: Insulin Human Lispro (Insulin Lispro 100 Unit/Ml 3 Ml Vial) 0 unit SUBCUT QIDACHS [facility]; Protocol Last Admin: 01/03/22 09:23 Dose: 6 unit Documented by: Insulin Human Lispro (Insulin Lispro 100 Unit/Ml 3 Ml Vial) 5 unit SUBCUT QI DACHS [facility] Last Admin: 01/03/22 09:24 Dose: 5 unit Documented by: Lamotrigine (Lamotrigine 100 Mg Tablet) 100 mg PO DAILY [facility] Last Admin: 01/03/22 08:26 Dose: 100 mg Documented by: Magnesium Hydroxide (Milk Of Magnesia 30 Ml Oral.Susp) 30 ml PO DAILY PRN PRN Reason: Constipation Metformin HCl (Metformin Hcl Er 500 Mg Tab.Er.24h) 1,000 mg PO DAILY [facility] Last Admin: 01/03/22 08:23 Dose: 1,000 mg Documented by: Nicotine (Nicotine 21 Mg Patch.Td24) 21 mg TRANSDERMA DAILY [facility] Last Admin: 01/03/22 08:27 Dose: 21 mg Documented by: Nicotine Polacrilex (Nicotine Polacrilex 2 Mg Gum) 4 mg BUCCAL Q2H PRN PRN Reason: Nicotine Cravings Last Admin: 01/02/22 22:39 Dose: 4 mg Documented by: Omeprazole (Omeprazole 20 Mg Capsule.) 20 mg PO DAILY [facility] Last Admin: 01/03/22 08:25 Dose: 20 mg Documented by: Pregabalin (Pregabalin 75 Mg Capsule) 225 mg PO DAILY [facility] Last Admin: 01/03/22 08:22 Dose: 225 mg Documented by: Senna (Sennosides 8.6 Mg Tablet) 8.6 mg PO BID [facility] Last Admin: 01/03/22 08:23 Dose: 8.6 mg Documented by: Sitagliptin Phosphate (Sitagliptin Phosphate 100 Mg Tablet) 100 mg PO DAILY [facility] Last Admin: 01/03/22 08:26 Dose: 100 mg Documented by: Allergies Allergies Allergy/AdvReac Type Severity Reaction Status Date / Time quetiapine [From Seroquel] Allergy Severe Difficulty Verified 12/27/21 19:41 Breathing Assessment & Plan Assessment & Plan (1) Schizoaffective disorder, depressive type: Status: Acute Code(s): F25.1 - Schizoaffective disorder, depressive type Plan Patient is a 41-year-old female with history of mood lability, chronic SI and past suicide attempts who presented to the ED with her partner after having made a suicidal comment to her partner, following an intentional overdose of her medications about 3 days prior in a suicide attempt. Patient is minimizing recent attempt however as reported, she has a long history of SI and attempts which are chronic for her. PLAN: haldol DCed at pt request. as of 12/30 thorazine scheduled for bedtime and PRN anxiety. prozac increased to 60 mg daily as of 12/31. thorazine PRNs decreased from 50 mg each to 25 mg each due to daytime sedation. asked why not kobe - explained that is what thorazine is for (pt has h/o be nzo dependence and misuse). otherwise previous regimen continued. On 01/02, added senna bid. On 01/03, increased Thorazine 25 mg po bid and keep regular 100 qhs. I spent ___20___ minutes with the patient and/or on the patient floor today, greater than?50% of which was spent counseling/coordinating care. Reason for contiued inpatient stay Substantial Risk for: inability to function, rapid decompensation and med/psych decompensation
[2022-01-03 17:38] LABS: Glucose, Whole Blood 219 mg/dL (60-115)
[2022-01-03 17:38] LABS: Glucose, Whole Blood 269 mg/dL (60-115)
[2022-01-03] MEDS: Acetaminophen 325 MG TABLET 650 MG PO (17:45)
[2022-01-03 18:00] VITALS: BP 158/76; PULSE 108; RESP 18; TEMP 36.1; O2SAT 99
[2022-01-03 20:48] LABS: Glucose, Whole Blood 245 mg/dL (60-115)
[2022-01-03] MEDS: chlorproMAZINE HCl 100 MG TABLET PO (21:00)
[2022-01-03] MEDS: Insulin Glargine,Hum.rec.anlog 100 UNIT/ML 10 ML VIAL 45 UNIT SUBCUT (21:01)
[2022-01-03] MEDS: Zolpidem Tartrate 5 MG TABLET 10 MG PO (22:47)
[2022-01-04] MEDS: chlorproMAZINE HCl 25 MG TABLET PO ×3 (04:22→14:53)
[2022-01-04] MEDS: hydrOXYzine HCL 25 MG TABLET PO ×3 (04:24→22:44)
[2022-01-04 08:35] LABS: Glucose, Whole Blood 247 mg/dL (60-115)
[2022-01-04] MEDS: Insulin Lispro 100 UNIT/ML 3 ML VIAL SUBCUT ×8 (08:51→20:22)
[2022-01-04] MEDS: Omeprazole 20 MG CAPSULE.DR PO (08:53)
[2022-01-04] MEDS: FLUoxetine HCl 20 MG CAPSULE 60 MG PO (08:54)
[2022-01-04] MEDS: Pregabalin 75 MG CAPSULE 225 MG PO (08:54)
[2022-01-04] MEDS: SITagliptin Phosphate 100 MG TABLET PO (08:55)
[2022-01-04] MEDS: metFORMIN HCl ER 500 MG TAB.ER.24H 1000 MG PO (08:55)
[2022-01-04] MEDS: bisacodyL 5 MG TABLET.DR PO (08:56)
[2022-01-04] MEDS: Sennosides 8.6 MG TABLET PO ×2 (08:56→20:20)
[2022-01-04] MEDS: cloNIDine HCL 0.1 MG TABLET PO ×2 (08:56→20:21)
[2022-01-04] MEDS: lamoTRIgine 100 MG TABLET PO (08:57)
[2022-01-04] MEDS: Nicotine 21 MG PATCH.TD24 TRANSDERMA (08:58)
[2022-01-04 09:02] VITALS: BP 122/78; PULSE 105; RESP 18; TEMP 36.4; O2SAT 99
--- NOTE | 2022-01-04 10:56 | P.PNPSI_ITS ---
Subjective Subjective Date of Service: 01/04/22 Reason For Visit: depression,SI Subjective Notes: Conditional Voluntary Interim History: The nursing staff reported the patient complained of auditory hallucinations in the background the patient complained of broken sleep and she stated that Thorazine help her with the voices. On interview we discussed at length treatment options and she agreed increase Thorazine up to 50 minutes p.o. b.i.d. and keep 100 at night. Mental Status Exam Mental Status Exam Patient Appearance: Appropriate Patient Orientation: Person and Situation Level of Consciousness: Awake Patient Behavior: Cooperative Mood Description: Appropriate Affect Description: Constricted Patient Cognition Impaired: No Ability to Follow Directions: Good Speech Pattern: Clear Hallucinations: Auditory Delusions: Paranoid Ideation Thought Process: Linear Thought Content: positive for [place] and positive for Circumstantial Judgement: Fair Diagnostics Vital Signs (24Hr): Vital Signs - 24 hr 01/03/22 18:00 01/04/22 09:02 Temperature 97 F 97.6 F Pulse Rate 108 H 105 H Respiratory Rate 18 18 Blood Pressure 158/76 H 122/78 Pulse Oximetry 99 99 BMI result Body Mass Index 37.1 Labs Results: 12/27/21 20:14 01/03/22 08:30 Labs: Laboratory Results - last 48 hr 01/02/22 01/02/22 01/02/22 12:56 17:26 20:15 Sodium Potassium Chloride Carbon Dioxide Anion Gap BUN Creatinine Estim Creat Clear Calc Estimated GFR POC Glucose 254 H 302 H 293 H Random Glucose Calcium 01/03/22 01/03/22 01/03/22 08:19 08:30 12:20 Sodium 134 L Potassium 4.5 D Chloride 100 Carbon Dioxide 26 Anion Gap 13 BUN 11 Creatinine 0.85 Estim Creat Clear Calc 107.4 Estimated GFR > 60 POC Glucose 291 H 269 H Random Glucose 329 H Calcium 9.9 D 01/03/22 01/03/22 01/04/22 17:35 20:42 08:26 Sodium Potassium Chloride Carbon Dioxide Anion Gap BUN Creatinine Estim Creat Clear Calc Estimated GFR POC Glucose 219 H 245 H 247 H Random Glucose Calcium Medications Medications Current Medications Acetaminophen (Acetaminophen 325 Mg Tablet) 650 mg PO Q6H PRN PRN Reason: Headache/Pain Mild Scale (1-3) Last Admin: 01/03/22 17:45 Dose: 650 mg Documented by: Al Hydroxide/Mg Hydroxide (Magnesium Hydrox/Alum Hydrox 30 Ml Oral.Susp) 30 ml PO Q6H PRN PRN Reason: Heartburn/Nausea Bisacodyl (Bisacodyl 5 Mg Tablet.Dr) 5 mg PO DAILY [facility] Last Admin: 01/04/22 08:56 Dose: 5 mg Documented by: Chlorpromazine HCl (Chlorpromazine Hcl 100 Mg Tablet) 100 mg PO BEDTIME [facility] Last Admin: 01/03/22 21:00 Dose: 100 mg Documented by: Chlorpromazine HCl (Chlorpromazine Hcl 100 Mg Tablet) 100 mg PO BEDTIME PRN PRN Reason: insomnia Last Admin: 01/02/22 22:42 Dose: 100 mg Documented by: Chlorpromazine HCl (Chlorpromazine Hcl 25 Mg Tablet) 25 mg PO Q4H PRN PRN Reason: Anxiety Last Admin: 01/04/22 04:22 Dose: 25 mg Documented by: Chlorpromazine HCl (Chlorpromazine Hcl 25 Mg Tablet) 25 mg PO BID@0800,1700 [facility] Last Admin: 01/04/22 08:58 Dose: 25 mg Documented by: Clonidine HCl (Clonidine Hcl 0.1 Mg Tablet) 0.1 mg PO BID [facility]; Protocol Last Admin: 01/04/22 08:56 Dose: 0.1 mg Documented by: Dextrose (Dextrose 50 % 25 Gm/50 Ml Syringe) 25 gm IVPUSH Q15M PRN; Protocol PRN Reason: per Hypoglycemia Standing Ord. Dextrose (Dextrose 50 % 25 Gm/50 Ml Syringe) 25 gm IVPUSH Q15M PRN; Protocol PRN Reason: per Hypoglycemia Standing Ord. Fluoxetine HCl (Fluoxetine Hcl 20 Mg Capsule) 60 mg PO DAILY [facility] Last Admin: 01/04/22 08:54 Dose: 60 mg Documented by: Glucose (Glucose Gel 15 Gm Gel..Gram.) 15 gm PO Q15M PRN; Protocol PRN Reason: per Hypoglycemia Standing Ord. Glucose (Glucose Gel 15 Gm Gel..Gram.) 15 gm PO Q15M PRN; Protocol PRN Reason: per Hypoglycemia Standing Ord. Hydroxyzine HCl (Hydroxyzine Hcl 25 Mg Tablet) 25 mg PO Q6H PRN PRN Reason: Anxiety Last Admin: 01/04/22 04:24 Dose: 25 mg Documented by: Insulin Glargine (Insulin Glargine,Hum.Rec.Anlog 100 Unit/Ml 10 Ml Vial) 45 unit SUBCUT BEDTIME [facility] Last Admin: 01/03/22 21:01 Dose: 45 unit Documented by: Insulin Human Lispro (Insulin Lispro 100 Unit/Ml 3 Ml Vial) 0 unit SUBCUT QIDACHS [facility]; Protocol Last Admin: 01/04/22 08:51 Dose: 4 unit Documented by: Insulin Human Lispro (Insulin Lispro 100 Unit/Ml 3 Ml Vial) 5 unit SUBCUT QIDACHS [facility] Last Admin: 01/04/22 08:57 Dose: 5 unit Documented by: Lamotrigine (Lamotrigine 100 Mg Tablet) 100 mg PO DAILY [facility] Last Admin: 01/04/22 08:57 Dose: 100 mg Documented by: Magnesium Hydroxide (Milk Of Magnesia 30 Ml Oral.Susp) 30 ml PO DAILY PRN PRN Reason: Constipation Metformin HCl (Metformin Hcl Er 500 Mg Tab.Er.24h) 1,000 mg PO DAILY [facility] Last Admin: 01/04/22 08:55 Dose: 1,000 mg Documented by: Nicotine (Nicotine 21 Mg Patch.Td24) 21 mg TRANSDERMA DAILY [facility] Last Admin: 01/04/22 08:58 Dose: 21 mg Documented by: Nicotine Polacrilex (Nicotine Polacrilex 2 Mg Gum) 4 mg BUCCAL Q2H PRN PRN Reason: Nicotine Cravings Last Admin: 01/02/22 22:39 Dose: 4 mg Documented by: Omeprazole (Omeprazole 20 Mg Capsule.Dr) 20 mg PO DAILY [facility] Last Admin: 01/04/22 08:53 Dose: 20 mg Documented by: Pregabalin (Pregabalin 75 Mg Capsule) 225 mg PO DAILY [facility] Last Admin: 01/04/22 08:54 Dose: 225 mg Documented by: Senna (Sennosides 8.6 Mg Tablet) 8.6 mg PO BID [facility] Last Admin: 01/04/22 08:56 Dose: 8.6 mg Documented by: Sitagliptin Phosphate (Sitagliptin Phosphate 100 Mg Tablet) 100 mg PO DAILY [facility] Last Admin: 01/04/22 08:55 Dose: 100 mg Documented by: Zolpidem Tartrate (Zolpidem Tartrate 5 Mg Tablet) 10 mg PO BEDTIME [facility] Last Admin: 01/03/22 22:47 Dose: 10 mg Documented by: Allergies Allergies Allergy/AdvReac Type Severity Reaction Status Date / Time quetiapine [From Seroquel] Allergy Severe Difficulty Verified 12/27/21 19:41 Breathing Assessment & Plan Assessment & Plan (1) Schizoaffective disorder, depressive type: Status: Acute Code(s): F25.1 - Schizoaffective disorder, depressive type Plan Patient is a 41-year-old female with history of mood lability, chronic SI and past suicide attempts who presented to the ED with her partner after having made a suicidal comment to her partner, following an intentional overdose of her medications about 3 days prior in a suicide attempt. Patient is minimizing recent attempt however as reported, she has a long history of SI and attempts which are chronic for her. PLAN: haldol DCed at pt request. as of 12/30 thorazine scheduled for bedtime and PRN anxiety. prozac increased to 60 mg daily as of 12/31. thorazine PRNs decreased from 50 mg each to 25 mg each due to daytime sedation. asked why not ativan - MD explained that is what thorazine is for (pt has h/o benzo dependence and misuse). otherwise previous regimen continued. On 01/02, added senna bid. On 01/03, increased Thorazine 25 mg po bid and keep regular 100 qhs. On 01/04, Thorazine increased up to 50 mg po bid, rest the same. I spent ___20___ minutes with the patient and/or on the patient floor today, greater than?50% of which was spent counseling/coordinating care. Reason for contiued inpatient stay Substantial Risk for: inability to function, rapid decompensation and med/psych decompensation
[2022-01-04 12:39] LABS: Glucose, Whole Blood 234 mg/dL (60-115)
[2022-01-04] MEDS: chlorproMAZINE HCl 25 MG TABLET 50 MG PO (17:33)
[2022-01-04 17:40] LABS: Glucose, Whole Blood 306 mg/dL (60-115)
[2022-01-04 19:53] VITALS: BP 126/80; PULSE 108; RESP 16; TEMP 36.7; O2SAT 98
[2022-01-04 20:04] LABS: Glucose, Whole Blood 343 mg/dL (60-115)
[2022-01-04] MEDS: chlorproMAZINE HCl 100 MG TABLET PO ×2 (20:21→22:44)
[2022-01-04] MEDS: Insulin Glargine,Hum.rec.anlog 100 UNIT/ML 10 ML VIAL 45 UNIT SUBCUT (20:22)
[2022-01-04] MEDS: Zolpidem Tartrate 5 MG TABLET 10 MG PO (21:11)
[2022-01-04 23:57] LABS: Glucose, Whole Blood 362 mg/dL (60-115)
[2022-01-05] MEDS: chlorproMAZINE HCl 25 MG TABLET PO ×2 (03:31→12:29)
[2022-01-05 03:32] LABS: Glucose, Whole Blood 268 mg/dL (60-115)
[2022-01-05 08:05] VITALS: BP 140/82; PULSE 117; RESP 17; TEMP 37.1; O2SAT 98
[2022-01-05] MEDS: Omeprazole 20 MG CAPSULE.DR PO (08:18)
[2022-01-05] MEDS: SITagliptin Phosphate 100 MG TABLET PO (08:19)
[2022-01-05] MEDS: chlorproMAZINE HCl 25 MG TABLET 50 MG PO ×2 (08:19→17:24)
[2022-01-05] MEDS: Sennosides 8.6 MG TABLET PO ×2 (08:19→19:46)
[2022-01-05] MEDS: FLUoxetine HCl 20 MG CAPSULE 60 MG PO (08:19)
[2022-01-05] MEDS: Nicotine 21 MG PATCH.TD24 TRANSDERMA (08:20)
[2022-01-05] MEDS: metFORMIN HCl ER 500 MG TAB.ER.24H 1000 MG PO (08:20)
[2022-01-05] MEDS: lamoTRIgine 100 MG TABLET PO (08:20)
[2022-01-05] MEDS: cloNIDine HCL 0.1 MG TABLET PO ×2 (08:20→14:28)
[2022-01-05] MEDS: bisacodyL 5 MG TABLET.DR PO (08:20)
[2022-01-05 08:38] LABS: Glucose, Whole Blood 316 mg/dL (60-115)
[2022-01-05 08:58] LABS: COVID-19 Test Negative (Negative); IDNOW Serial# 16C4AD1C
[2022-01-05] MEDS: Insulin Lispro 100 UNIT/ML 3 ML VIAL SUBCUT ×8 (09:13→19:58)
[2022-01-05] MEDS: Acetaminophen 325 MG TABLET 650 MG PO ×2 (10:50→18:52)
[2022-01-05] MEDS: Pregabalin 75 MG CAPSULE 225 MG PO (11:11)
[2022-01-05 12:29] LABS: Glucose, Whole Blood 232 mg/dL (60-115)
[2022-01-05] MEDS: hydrOXYzine HCL 25 MG TABLET PO ×2 (12:32→18:51)
--- NOTE | 2022-01-05 14:49 | HO.PSYCHPN ---
Subjective Subjective Date of Service: 01/05/22 Reason For Visit: depression,SI Interim History: calm, cooperative, a bit subdued today. feels the atmosphere on the unit was tense over the weekend. looking forward to DC tomorrow. feels majority of her Sx have dissipated. anxiety ongoing, though, agrees to increase in clonidine dosing to 0.2 BID. per staff, anx 7, dep zero. anxious about discharge this week. eating and sleeping well. no SI/HI/VH. endorses ongoing AH, but not as troubling as before. attending groups. Mental Status Exam Mental Status Exam Narrative: Pt is alert and oriented; behavior is cooperative, friendly and calm; patient is not in distress; dressed in casual attire, without dentures in, with unkempt hair but adequate hygiene; mood is described as better and affect congruent, calm; eye contact appropriate; Speech is normal rate, volume and prosody and not pressured; no psychomotor agitation/retardation present; thought process is organized and goal directed; Thought content is on tx; otherwise pertinent to relevant topics and without any delusional content, paranoid ideations or grandiosity; no SI/HI/AVH expressed Diagnostics Vital Signs (24Hr): Vital Signs - 24 hr 01/04/22 19:53 01/05/22 08:05 Temperature 98.0 F 98.7 F Pulse Rate 108 H 117 H Respiratory Rate 16 17 Blood Pressure 126/80 140/82 H Pulse Oximetry 98 98 BMI result Body Mass Index 37.1 Labs Results: 12/27/21 20:14 01/03/22 08:30 Labs: Laboratory Results - last 48 hr 01/03/22 01/03/22 01/03/22 12:20 17:35 20:42 POC Glucose 269 H 219 H 245 H COVID-19 ([facility]) COVID-19 [facility] [employer] 01/04/22 01/04/22 01/04/22 08:26 12:35 17:36 POC Glucose 247 H 234 H 306 H COVID-19 ([facility]) COVID-19 [facility] [employer] 01/04/22 01/04/22 01/05/22 20:01 23:49 03:29 POC Glucose 343 H 362 H* 268 H COVID-19 ([facility]) COVID-19 [facility] [employer] 05/31/22 05/31/22 05/31/22 08:18 08:30 12:26 POC Glucose 316 H 232 H COVID-19 ([facility]) Negative COVID-19 Clin Com See Note Medications Medications Current Medications Acetaminophen (Acetaminophen 325 Mg Tablet) 650 mg PO Q6H PRN PRN Reason: Headache/Pain Mild Scale (1-3) Last Admin: 01/05/22 10:50 Dose: 650 mg Documented by: Al Hydroxide/Mg Hydroxide (Magnesium Hydrox/Alum Hydrox 30 Ml Oral.Susp) 30 ml PO Q6H PRN PRN Reason: Heartburn/Nausea Bisacodyl (Bisacodyl 5 Mg Tablet.Dr) 5 mg PO DAILY [facility] Last Admin: 01/05/22 08:20 Dose: 5 mg Documented by: Chlorpromazine HCl (Chlorpromazine Hcl 100 Mg Tablet) 100 mg PO BEDTIME [facility] Last Admin: 01/04/22 20:21 Dose: 100 mg Documented by: Chlorpromazine HCl (Chlorpromazine Hcl 100 Mg Tablet) 100 mg PO BEDTIME PRN PRN Reason: insomnia Last Admin: 01/04/22 22:44 Dose: 100 mg Documented by: Chlorpromazine HCl (Chlorpromazine Hcl 25 Mg Tablet) 25 mg PO Q4H PRN PRN Reason: Anxiety Last Admin: 01/05/22 12:29 Dose: 25 mg Documented by: Chlorpromazine HCl (Chlorpromazine Hcl 25 Mg Tablet) 50 mg PO BID@0800,1700 [facility] Last Admin: 01/05/22 08:19 Dose: 50 mg Documented by: Clonidine HCl (Clonidine Hcl 0.2 Mg Tablet) 0.2 mg PO BID [facility]; Protocol Dextrose (Dextrose 50 % 25 Gm/50 Ml Syringe) 25 gm IVPUSH Q15M PRN; Protocol PRN Reason: per Hypoglycemia Standing Ord. Dextrose (Dextrose 50 % 25 Gm/50 Ml Syringe) 25 gm IVPUSH Q15M PRN; Protocol PRN Reason: per Hypoglycemia Standing Ord. Fluoxetine HCl (Fluoxetine Hcl 20 Mg Capsule) 60 mg PO DAILY [facility] Last Admin: 01/05/22 08:19 Dose: 60 mg Documented by: Glucose (Glucose Gel 15 Gm Gel..Gram.) 15 gm PO Q15M PRN; Protocol PRN Reason: per Hypoglycemia Standing Ord. Glucose (Glucose Gel 15 Gm Gel..Gram.) 15 gm PO Q15M PRN; Protocol PRN Reason: per Hypoglycemia Standing Ord. Hydroxyzine HCl (Hydroxyzine Hcl 25 Mg Tablet) 25 mg PO Q6H PRN PRN Reason: Anxiety Last Admin: 01/05/22 12:32 Dose: 25 mg Documented by: Insulin Glargine (Insulin Glargine,Hum.Rec.Anlog 100 Unit/Ml 10 Ml Vial) 45 unit SUBCUT BEDTIME [facility] Last Admin: 01/04/22 20:22 Dose: 45 unit Documented by: Insulin Human Lispro (Insulin Lispro 100 Unit/Ml 3 Ml Vial) 0 unit SUBCUT QIDACHS [facility]; Protocol Last Admin: 01/05/22 13:26 Dose: 4 unit Documented by: Insulin Human Lispro (Insulin Lispro 100 Unit/Ml 3 Ml Vial) 5 unit SUBCUT QIDACHS [facility] Last Admin: 01/05/22 13:27 Dose: 5 unit Documented by: Lamotrigine (Lamotrigine 100 Mg Tablet) 100 mg PO DAILY [facility] Last Admin: 01/05/22 08:20 Dose: 100 mg Documented by: Magnesium Hydroxide (Milk Of Magnesia 30 Ml Oral.Susp) 30 ml PO DAILY PRN PRN Reason: Constipation Metformin HCl (Metformin Hcl Er 500 Mg Tab.Er.24h) 1,000 mg PO DAILY [facility] Last Admin: 01/05/22 08:20 Dose: 1,000 mg Documented by: Nicotine (Nicotine 21 Mg Patch.Td24) 21 mg TRANSDERMA DAILY [facility] Last Admin: 01/05/22 08:20 Dose: 21 mg Documented by: Nicotine Polacrilex (Nicotine Polacrilex 2 Mg Gum) 4 mg BUCCAL Q2H PRN PRN Reason: Nicotine Cravings Last Admin: 01/02/22 22:39 Dose: 4 mg Documented by: Omeprazole (Omeprazole 20 Mg Capsule.Dr) 20 mg PO DAILY [facility] Last Admin: 01/05/22 08:18 Dose: 20 mg Documented by: Pregabalin (Pregabalin 75 Mg Capsule) 225 mg PO DAILY [facility] Last Admin: 01/05/22 11:11 Dose: 225 mg Documented by: Senna (Sennosides 8.6 Mg Tablet) 8.6 mg PO BID [facility] Last Admin: 01/05/22 08:19 Dose: 8.6 mg Documented by: Sitagliptin Phosphate (Sitagliptin Phosphate 100 Mg Tablet) 100 mg PO DAILY [facility] Last Admin: 01/05/22 08:19 Dose: 100 mg Documented by: Zolpidem Tartrate (Zolpidem Tartrate 5 Mg Tablet) 10 mg PO BEDTIME [facility] Last Admin: 01/04/22 21:11 Dose: 10 mg Documented by: Allergies Allergies Allergy/AdvReac Type Severity Reaction Status Date / Time quetiapine [From Seroquel] Allergy Severe Difficulty Verified 12/27/21 19:41 Breathing Assessment & Plan Assessment & Plan (1) Schizoaffective disorder, depressive type: Status: Acute Code(s): F25.1 - Schizoaffective disorder, depressive type Plan Patient is a 41-year-old female with history of mood lability, chronic SI and past suicide attempts who presented to the ED with her partner after having made a suicidal comment to her partner, following an intentional overdose of her medications about 3 days prior in a suicide attempt. Patient is minimizing recent attempt however as reported, she has a long history of SI and attempts which are chronic for her. PLAN: haldol DCed at pt request. as of 12/30 thorazine scheduled for bedtime and PRN anxiety. prozac increased to 60 mg daily as of 12/31. thorazine PRNs decreased from 50 mg each to 25 mg each due to daytime sedation. asked why not kobe - explained that is what thorazine is for (pt has h/o benzo dependence and misuse). otherwise previous regimen continued. On 01/02, added senna bid. On 01/03, increased Thorazine 25 mg po bid and keep regular 100 qhs. On 01/04, Thorazine increased up to 50 mg po bid, rest the same. 01/05: c/o anxiety, clonidine increased to 0.2 BID. otherwise stable, DC tomorrow. I spent ___20___ minutes with the patient and/or on the patient floor today, greater than?50% of which was spent counseling/coordinating care. Reason for contiued inpatient stay Substantial Risk for: rapid decompensation
[2022-01-05 17:28] LABS: Glucose, Whole Blood 219 mg/dL (60-115)
[2022-01-05 19:30] VITALS: BP 130/77; PULSE 108
[2022-01-05] MEDS: chlorproMAZINE HCl 100 MG TABLET PO (19:46)
[2022-01-05] MEDS: Insulin Glargine,Hum.rec.anlog 100 UNIT/ML 10 ML VIAL 45 UNIT SUBCUT (19:46)
[2022-01-05] MEDS: cloNIDine HCL 0.2 MG TABLET PO (19:46)
[2022-01-05 20:33] LABS: Glucose, Whole Blood 219 mg/dL (60-115)
[2022-01-05 21:51] VITALS: BP 132/79; PULSE 95
[2022-01-05] MEDS: Zolpidem Tartrate 5 MG TABLET 10 MG PO (21:51)
[2022-01-06] MEDS: hydrOXYzine HCL 25 MG TABLET PO (03:38)
[2022-01-06] MEDS: chlorproMAZINE HCl 25 MG TABLET PO (03:38)
[2022-01-06] MEDS: Acetaminophen 325 MG TABLET 650 MG PO (03:38)
[2022-01-06 08:00] VITALS: BP 115/63; PULSE 85; RESP 19; TEMP 36.3; O2SAT 97
[2022-01-06 08:23] LABS: Glucose, Whole Blood 302 mg/dL (60-115)
[2022-01-06] MEDS: Insulin Lispro 100 UNIT/ML 3 ML VIAL SUBCUT ×2 (09:15→09:16)
[2022-01-06] MEDS: Nicotine 21 MG PATCH.TD24 TRANSDERMA (09:16)
[2022-01-06] MEDS: Sennosides 8.6 MG TABLET PO (09:17)
[2022-01-06] MEDS: Pregabalin 75 MG CAPSULE 225 MG PO (09:17)
[2022-01-06] MEDS: chlorproMAZINE HCl 25 MG TABLET 50 MG PO (09:17)
[2022-01-06] MEDS: Omeprazole 20 MG CAPSULE.DR PO (09:17)
[2022-01-06] MEDS: FLUoxetine HCl 20 MG CAPSULE 60 MG PO (09:17)
[2022-01-06] MEDS: metFORMIN HCl ER 500 MG TAB.ER.24H 1000 MG PO (09:18)
[2022-01-06] MEDS: lamoTRIgine 100 MG TABLET PO (09:18)
[2022-01-06] MEDS: bisacodyL 5 MG TABLET.DR PO (09:18)
[2022-01-06] MEDS: cloNIDine HCL 0.2 MG TABLET PO (09:18)
[2022-01-06] MEDS: SITagliptin Phosphate 100 MG TABLET PO (09:18)
--- NOTE | 2022-01-06 10:58 | PM.PSYDC ---
DS: Providers Provider Date of Service: 01/06/22 Date of admission: 12/29/21 17:17 Primary care physician: Unknown Physician Consults: 01/01/22 11:34 Consult to Hospitalist Routine Consulting Provider: Hospitalist Reason For Exam: DM inadequately controlled. plz rec change in mgmt DS: Diagnosis Discharge Diagnosis (1) Schizoaffective disorder, depressive type: Status: Acute DS: Medications Discharge Medications Home Medications: Home Medications Medication Instructions Recorded Confirmed Trulicity 1.5 mg SUBCUT Q7D 12/27/21 12/28/21 lamotrigine 100 mg tablet 100 mg PO DAILY 12/27/21 12/27/21 metformin 1,000 mg tablet,extended 1,000 mg PO DAILY 12/27/21 12/27/21 release 24hr omeprazole 20 mg capsule,delayed 20 mg PO DAILY 12/27/21 12/27/21 release pregabalin 225 mg capsule 225 mg PO DAILY 12/27/21 12/27/21 sitagliptin 100 mg tablet (Januvia) 100 mg PO DAILY 12/27/21 12/27/21 zolpidem 10 mg tablet 10 mg PO BEDTIME 12/27/21 12/27/21 insulin glargine 100 unit/mL (3 45 unit SUBCUT BEDTIME 12/28/21 12/28/21 mL) subcutaneous pen (Lantus Solostar U-100 Insulin) Previous Rx's Medication Instructions Recorded bisacodyl 5 mg tablet,delayed 5 mg PO DAILY 30 Days #30 tab 01/06/22 release chlorpromazine 100 mg tablet 100 mg PO BEDTIME 30 Days #30 tab 01/06/22 chlorpromazine 25 mg tablet 50 mg PO BID@0800,1700 30 Days 01/06/22 #120 tab clonidine HCl 0.2 mg tablet 0.2 mg PO BID 30 Days #60 tab 01/06/22 fluoxetine 20 mg capsule 60 mg PO DAILY 30 Days #90 cap 01/06/22 nicotine 21 mg/24 hr daily 21 mg TRANSDERMAL DAILY 28 Days 01/06/22 transdermal patch #28 ea sennosides 8.6 mg tablet (Senna 8.6 mg PO BID 30 Days #60 tab 01/06/22 Lax) Mental Status Exam Mental Status Exam Narrative: Pt is alert and oriented; behavior is cooperative, friendly and calm; patient is not in distress; dressed in casual attire, without dentures in, with unkempt hair but adequate hygiene; mood is described as GOOD and affect congruent, calm; eye contact appropriate; Speech is normal rate, volume and prosody and not pressured; no psychomotor agitation/retardation present; thought process is organized and goal directed; Thought content is on tx; otherwise pertinent to relevant topics and without any delusional content, paranoid ideations or grandiosity; no SI/HI. some AVH but improved from admission. Data Data Completed and Pending Completed studies during hospitalization [Text1]: 12/30/21 12/30/21 12/30/21 08:27 12:50 17:56 Sodium Potassium Chloride Carbon Dioxide Anion Gap BUN Creatinine Estim Creat Clear Calc Estimated GFR POC Glucose 291 H 227 H Random Glucose Calcium Vitamin B12 243 Folate 5.1 COVID-19 ([facility]) COVID-19 [employer] 12/30/21 12/31/21 12/31/21 20:11 08:44 12:26 Sodium Potassium Chloride Carbon Dioxide Anion Gap BUN Creatinine Estim Creat Clear Calc Estimated GFR POC Glucose 275 H 398 H* 305 H Random Glucose Calcium Vitamin B12 Folate COVID-19 ([facility]) COVID-19 [employer] 12/31/21 12/31/21 01/01/22 17:25 20:12 07:50 Sodium Potassium Chloride Carbon Dioxide Anion Gap BUN Creatinine Estim Creat Clear Calc Estimated GFR POC Glucose 254 H 348 H 271 H Random Glucose Calcium Vitamin B12 Folate COVID-19 ([facility]) COVID-19 [employer] 01/01/22 01/01/22 01/01/22 12:30 17:41 21:05 Sodium Potassium Chloride Carbon Dioxide Anion Gap BUN Creatinine Estim Creat Clear Calc Estimated GFR POC Glucose 302 H 222 H 250 H Random Glucose Calcium Vitamin B12 Folate COVID-19 ([facility]) COVID-19 [employer] 01/02/22 01/02/22 01/02/22 08:47 12:56 17:26 Sodium Potassium Chloride Carbon Dioxide Anion Gap BUN Creatinine Estim Creat Clear Calc Estimated GFR POC Glucose 269 H 254 H 302 H Random Glucose Calcium Vitamin B12 Folate COVID-19 ([facility]) COVID-19 [employer] 01/02/22 01/03/22 01/03/22 20:15 08:19 08:30 Sodium 134 L Potassium 4.5 D Chloride 100 Carbon Dioxide 26 Anion Gap 13 BUN 11 Creatinine 0.85 Estim Creat Clear Calc 107.4 Estimated GFR > 60 POC Glucose 293 H 291 H Random Glucose 329 H Calcium 9.9 D Vitamin B12 Folate COVID-19 ([facility]) COVID-19 [employer] 01/03/22 01/03/22 01/03/22 12:20 17:35 20:42 Sodium Potassium Chloride Carbon Dioxide Anion Gap BUN Creatinine Estim Creat Clear Calc Estimated GFR POC Glucose 269 H 219 H 245 H Random Glucose Calcium Vitamin B12 Folate COVID-19 ([facility]) COVID-19 [employer] Com 01/04/22 01/04/22 01/04/22 08:26 12:35 17:36 Sodium Potassium Chloride Carbon Dioxide Anion Gap BUN Creatinine Estim Creat Clear Calc Estimated GFR POC Glucose 247 H 234 H 306 H Random Glucose Calcium Vitamin B12 Folate COVID-19 ([facility]) COVID-19 [employer] 01/04/22 01/04/22 01/05/22 20:01 23:49 03:29 Sodium Potassium Chloride Carbon Dioxide Anion Gap BUN Creatinine Estim Creat Clear Calc Estimated GFR POC Glucose 343 H 362 H* 268 H Random Glucose Calcium Vitamin B12 Folate COVID-19 ([facility]) COVID-19 [employer] 01/05/22 01/05/22 01/05/22 08:18 08:30 12:26 Sodium Potassium Chloride Carbon Dioxide Anion Gap BUN Creatinine Estim Creat Clear Calc Estimated GFR POC Glucose 316 H 232 H Random Glucose Calcium Vitamin B12 Folate COVID-19 ([facility]) Negative COVID-19 [employer] See Note 01/05/22 01/05/22 01/06/22 17:24 19:39 08:18 Sodium Potassium Chloride Carbon Dioxide Anion Gap BUN Creatinine Estim Creat Clear Calc Estimated GFR POC Glucose 219 H 219 H 302 H Random Glucose Calcium Vitamin B12 Folate COVID-19 ([facility]) COVID-19 [employer] DS: Summary Hospital Course Hospital Course: per 12/29 admission note: Cally is a 41 y.o. pt who carries a dx of schizoaffective disorder, depressive type. She presented to [facility] ED on 12/27/2021 brought in by her partner due to increased lethargy following an intentional overdose of her medications 3 days ago, says this was a suicide attempt. Pt has hx of overtaking her meds for sleep. Per psych consult, pt has a psych hx positive for mood lability, chronic SI and past suicide attempts. Pt unable to identify precipitating factors. Pt reports good med-adherence. Has hx of AH. I evaluated the pt this evening and upon interview she reports she is no longer on Haldol x one month, as it ?wasn?t working.? When asked about precipitating factors, pt says ?honestly I don?t know.? Says she ?just feels like im tired of all the things that happened.? Per pt, she has been having A/V hallucinations. Had a recent VH ?of this old short linda with a hat at the foot of my bed,? says ?one day he actually grabbed my feet,? denies that this was a dream. Pt has AH at baseline, ?I have voices in my head,? they call her inadequate, derogatory names, and tell her ?that I?m a bad mother, that I should be .? Pt reports onset of hallucinations x 1 yr ago. Her son left to go live with his father in [place] 1 yr ago, however pt asked for another year ?to recuperate.? Says her meds are working ?good,? minimizing suicide attempt, ?I just wanted to close my eyes and not think, I don?t know if that?s considered a suicide.? Pt requested to end the interview early, as she reported increased anxiety, ?Im starting to sweat, I want to cry.? She does not want med changes. Medical Evaluation Reviewed: Yes [facility] Medical History?(Updated 12/31/21 @ 01:37 by Radha Knight NP) Adjustment disorder with mixed disturbance of emotions and conduct Social History: has partner with whom she's been with for past 8 years, for 2 Precis: Patient is a 41-year-old female with history of mood lability, chronic SI and past suicide attempts who presented to the ED with her partner after having made a suicidal comment to her partner, following an intentional overdose of her medications about 3 days prior in a suicide attempt. Patient is minimizing recent attempt however as reported, she has a long history of SI and attempts which are chronic for her. PLAN: haldol DCed at pt request. as of 12/30 thorazine scheduled for bedtime and PRN anxiety. prozac increased to 60 mg daily as of 12/31. thorazine PRNs decreased from 50 mg each to 25 mg each due to daytime sedation. asked why not kobe - explained that is what thorazine is for (pt has h/o benzo dependence and misuse). otherwise previous regimen continued. On 01/02, added senna bid. On 01/03, increased Thorazine 25 mg po bid and keep regular 100 qhs. On 01/04, Thorazine increased up to 50 mg po bid, rest the same. 01/05: c/o anxiety, clonidine increased to 0.2 BID.? otherwise stable with AVH improved and SI resolved. 01/06: discharged to outpt level of care, per her request *PATIENT WILL NEED DAILY [facility] SERVICES FOR MEDICATION SUPERVISION DUE TO CHRONIC OVERDOSING AND MISUSE OF MEDICATIONS* Time Spent with Patient Time attestation: Total time spent providing and/or coordinating discharge services: Discharge Plan Discharge Patient Disposition: Home, Self-Care Discharge Diagnosis: Schizoaffective Disorder, Depressive Type Referrals: Daiana Juarez (Therapy) [Other] - 01/07/22 5:00 pm (IN OFFICE APPOINTMENT) Flavia Jerome (Psychiatry) [Other] - 01/19/22 9:30 am (TELEHEALTH APPOINTMENT) Mary Bolanos NP [Nurse Practitioner] - 1 Week (Provider will call pt for follow up appt ) Discharge Medications: New sennosides [Senna Lax] 8.6 mg Tablet 8.6 mg PO BID 30 Days Qty: 60 0RF chlorpromazine 100 mg Tablet 100 mg PO BEDTIME 30 Days Qty: 30 0RF clonidine HCl 0.2 mg Tablet 0.2 mg PO BID 30 Days Qty: 60 0RF Protocol: Hold for SBP< HOLD for SBP < : 90 chlorpromazine 25 mg Tablet 50 mg PO BID@0800,1700 30 Days Qty: 120 0RF nicotine 21 mg/24 hr Patch 24 Hour 21 mg transdermal DAILY 28 Days Qty: 28 0RF bisacodyl 5 mg Tablet,Delayed Release (Dr/Ec) 5 mg PO DAILY 30 Days Qty: 30 0RF fluoxetine 20 mg Capsule 60 mg PO DAILY 30 Days Qty: 90 0RF Continued omeprazole 20 mg Capsule,Delayed Release(Dr/Ec) 20 mg PO DAILY 0RF zolpidem 10 mg Tablet 10 mg PO BEDTIME 0RF lamotrigine 100 mg Tablet 100 mg PO DAILY 0RF metformin 1,000 mg Tablet Extended Release 24hr 1,000 mg PO DAILY 0RF pregabalin 225 mg Capsule 225 mg PO DAILY 0RF Januvia 100 mg Tablet 100 mg PO DAILY 0RF Trulicity 1.5 mg subcut Q7D 0RF Lantus Solostar U-100 Insulin 100 unit/mL (3 mL) Insulin Pen 45 unit SUBCUT BEDTIME 0RF Discontinued clonidine HCl 0.1 mg Tablet 0.1 mg PO BID 0RF olanzapine [Zyprexa] 10 mg Tablet 10 mg PO DAILY 0RF haloperidol [Haldol] 10 mg Tablet 10 mg PO DAILY 0RF benztropine [Cogentin] 1 mg Tablet 1 mg PO BID 0RF lorazepam [Ativan] 1 mg Tablet 1 mg PO BID PRN (Reason: Anxiety) 0RF fluoxetine [Prozac] 20 mg Capsule 20 mg PO BID 0RF Rx Instructions: administer in the morning and at noon/midday Discharge Orders: Discharge Order (Routine); Ordered 01/06/22 Ordered By: Mark Alvares Diet: advance to usual diet Activity on Discharge: As tolerated Stand Alone Forms: Patient Portal Discharge page, Community Support Care Plan Goals: stay safe and sober in the outpatient treatment setting Health Concerns: Diabetes Mellitus Plan of Treatment: take medications as prescribed, attend appointments as scheduled Assessment: not at imminent risk of harm to self or others Discharge Date/Time: 01/06/22 11:33
--- NOTE | 2022-01-06 11:54 | PC.NURSE ---
Patient was aware and ready for discharge. Paperwork reviewed with patient. Next dose medication and follow up appointment explained to patient. Patient verbalized understanding. Patient was pleasant and cooperative with the discharge process. Patient was accompanied with belongings to the front of the buildings per hospital policy.
== END 2022-01-06 11:33 | disposition home or self-care (01) | DRG 750 ==
LOC: HO.ED 12-29 15:01 → HO.PADLT16 12-29 17:22
PROVIDERS: Registered Nurse; Admitting Provider Psychiatry & Neurology Psychiatry; Emergency Provider Internal Medicine; Visit Provider Psychiatry & Neurology Psychiatry
DX: F25.1 Schizoaffective disorder, depressive type (principal); R45.851 Suicidal ideations; F43.25 Adjustment disorder with mixed disturbance of emotions and conduct; F17.210 Nicotine dependence, cigarettes, uncomplicated; E11.65 Type 2 diabetes mellitus with hyperglycemia; Z91.51 Personal history of suicidal behavior; Z20.822 Contact with and (suspected) exposure to COVID-19; Z71.6 Tobacco abuse counseling; Z79.4 Long term (current) use of insulin; Z79.84 Long term (current) use of oral hypoglycemic drugs; Z79.899 Other long term (current) drug therapy
CPT/HCPCS: 36415; 80048; 80053; 80061; 80143; 80179; 80307; 81001; 82077; 82607; 82746; 82947; 83036; 83735; 84439; 84443; 85025; 87635; 93005; 96374; 99285